=== PATIENT | female | born 1950 | race Hispanic/Latino ===

== ENCOUNTER 2017-09-25 18:15 | Emergency (ER) | payer MEDICARE, SELFPAY ==
--- NOTE | 2017-09-25 19:46 | RAD ---
PA AND LATERAL CHEST RADIOGRAPH: Date: 09-25-17 History: Cough. Comparison: 11-27-12 FINDINGS: Cardiac silhouette and pulmonary vasculature are within normal limits. The lungs are clear. Vascular calcifications are seen in the thoracic and visualized abdominal aorta. There has been no interval ch soto compared to prior study. IMPRESSION: No acute cardiopulmonary process. POS: [facility]
== END 2017-09-25 19:45 | disposition home or self-care (01) ==
LOC: ERS 18:15
DX: J20.8 Acute bronchitis due to other specified organisms (principal); E11.9 Type 2 diabetes mellitus without complications; I10 Essential (primary) hypertension; J45.909 Unspecified asthma, uncomplicated; F32.9 Major depressive disorder, single episode, unspecified
CPT/HCPCS: 71046

== ENCOUNTER 2017-11-15 11:09 | Emergency (ER) | payer MEDICARE ==
[2017-11-15 13:01] LABS: ALT (SGPT) 28 U/L (8-55); AST (SGOT) 57 U/L (5-34); Alkaline Phosphatase 145 U/L (40-150); Anion Gap 10 mmol/L (10-20); BUN (Urea Nitrogen) 12 mg/dL (9.8-20.1); Bilirubin, Total 0.6 mg/dL (0.2-1.2); Calc. Creatinine Clearance 0 mL/min (70-130); Carbon Dioxide 21 mmol/L (23-31); Chloride 114 mmol/L (98-107); Estimated GFR-MDRD 81; Globulin 4.1 g/dL (2.4-3.5); Glucose 222 mg/dL (80-115); Potassium 3.3 mmol/L (3.5-5.1); Protein, Total 7.1 g/dL (6.0-8.3); Sodium 142 mmol/L (136-145)
[2017-11-15 13:03] LABS: #Eosinphils 0.2 thou/uL (0.0-0.7); #Monocytes 0.4 thou/uL (0.11-0.59); #Neutrophils 1.8 thou/uL (1.40-6.50); %Basophils 0.3 % (0.0-1.0); %Eosinophils 6.3 % (0.0-10.0); %Lymphocytes 29.2 % (21.0-51.0); %Monocytes 10.7 % (0.0-10.0); %Neutrophils 53.5 % (42.0-75.0); Hemoglobin 12.4 g/dL (12.0-16.0); MDiff Complete? YES; Mean Corpuscular HGB CONC 33.7 g/dL (32.0-36.0); Mean Corpuscular Hemoglobin 33.5 pg (27.0-31.0); Mean Corpuscular Volume 99.3 fl (81.0-99.0); Mean Platelet Volume 6.7 fL (7.4-10.4); PLT Morphology Comment Appears Decreased; Platelet Count 67 thou/uL (130-400); Polychromasia SLIGHT = 2-3 cells (100X) (0-2/hpf); RBC Distribution Width 13.2 % (11.5-14.5); Red Blood Cell (RBC) Count 3.72 mill/uL (4.20-5.40); White Blood Cell (WBC) Count 3.3 thou/uL (4.8-10.8)
[2017-11-15] MEDS ORDERED: Potassium Chloride 20 MEQ TAB ONE (14:35)
[2017-11-15] MEDS ORDERED: Ondansetron ODT 4 MG TAB ONE (14:44)
== END 2017-11-15 16:27 | disposition home or self-care (01) ==
LOC: ERS 11:09
DX: A04.5 Campylobacter enteritis (principal); E11.9 Type 2 diabetes mellitus without complications; I10 Essential (primary) hypertension; J45.909 Unspecified asthma, uncomplicated; F32.9 Major depressive disorder, single episode, unspecified; Z79.899 Other long term (current) drug therapy
CPT/HCPCS: 36415; 36416; 80053; 82274; 85025; 87045; 87046; 87324; 87449; 87899; 96360; Q0162

== ENCOUNTER 2018-12-04 14:17 | Inpatient (IN) | payer MEDICARE, MEDICAID ==
--- NOTE | 2018-12-04 14:59 | RAD ---
XR Chest 1 View Portable History: [Cough] Comparison: Chest radiograph September 2017 Findings: Abnormal parenchymal opacities both lower lobes, greatest in the right lower lobe. No pneum othorax. No significant effusion. Heart size upper limits of normal. Dense calcifications of the aorta. Impression: Bibasilar airspace opacity concerning for infection. Follow-up after treatment haroon walker
[2018-12-04 15:00] LABS: #Eosinphils 0.1 thou/uL (0.0-0.7); #Lymphocytes 1.1 thou/uL (1.20-3.40); #Monocytes 0.8 thou/uL (0.11-0.59); #Neutrophils 6.9 thou/uL (1.40-6.50); %Basophils 0.1 % (0.0-1.0); %Lymphocytes 12.6 % (21.0-51.0); %Monocytes 8.8 % (0.0-10.0); %Neutrophils 77.5 % (42.0-75.0); Hemoglobin 12.6 g/dL (12.0-16.0); Mean Corpuscular HGB CONC 34.3 g/dL (32.0-36.0); Mean Corpuscular Hemoglobin 35.1 pg (27.0-31.0); Mean Platelet Volume 7.3 fL (7.4-10.4); Platelet Count 66 thou/uL (130-400); RBC Distribution Width 12.8 % (11.5-14.5); Red Blood Cell (RBC) Count 3.58 mill/uL (4.20-5.40); White Blood Cell (WBC) Count 8.9 thou/uL (4.8-10.8)
[2018-12-04 15:07] LABS: ALT (SGPT) 24 U/L (8-55); AST (SGOT) 44 U/L (5-34); Alkaline Phosphatase 143 U/L (40-150); Anion Gap 8 mmol/L (10-20); BUN (Urea Nitrogen) 15 mg/dL (9.8-20.1); Bilirubin, Total 1.5 mg/dL (0.2-1.2); Calc. Creatinine Clearance 0 mL/min (70-130); Calcium 8.9 mg/dL (7.8-10.44); Carbon Dioxide 22 mmol/L (23-31); Chloride 113 mmol/L (98-107); Estimated GFR-MDRD 71; Globulin 4.9 g/dL (2.4-3.5); Glucose 210 mg/dL (80-115); Protein, Total 7.9 g/dL (6.0-8.3); Sodium 139 mmol/L (136-145)
[2018-12-04 15:10] LABS: Bilirubin Negative (Negative); Blood, Urine Trace (Negative); Clarity CLOUDY (Clear); Glucose, Urine (Dipstick) 250 mg/dL (Negative); Leukocyte Large (Negative); Nitrite Positive (Negative); Protein, Urine (Dipstick) Trace mg/dL (Neg-Trace); Specific Gravity, Urine 1.022 (1.002-1.036)
[2018-12-04 15:12] LABS: Bacteria/HPF 4+ HPF (None Seen); Hyaline Casts/LPF 0-3 HYALINE CAST LPF (0-3 Hyaline); Pathc Cast-AUWi Flag 0.13 (0-2.49); RBC/HPF 0-3 HPF (0-3); Squamous Epithelial None Seen HPF (0-3)
[2018-12-04] MEDS ORDERED: Acetaminophen 500 MG TAB ONE (15:16)
[2018-12-04] MEDS ORDERED: cefTRIAXone\\ROCEPHIN 2 GM VIAL ONE (15:43)
[2018-12-04] MEDS ORDERED: Vancomycin HCl 1.25 GM in Sodium Chloride 0.9% 250 ML 250 ML IVPB SCH ×2 (16:45→20:00)
[2018-12-04] MEDS ORDERED: Permethrin 5% Cream 60 GM TUBE TOP SCH (17:45)
[2018-12-04] MEDS ORDERED: Nystatin Powder 15 GM BOT TOP PRN (18:00)
[2018-12-04] MEDS ORDERED: Ondansetron ODT 4 MG TAB PO PRN (18:01)
[2018-12-04] MEDS ORDERED: Ondansetron PF 4 MG/2 ML Vial IVP PRN (18:01)
[2018-12-04 18:31] VITALS: BMI 33.3
[2018-12-04] MEDS ORDERED: Dextrose 5% in Water 1,000 ML IV PRN (19:37)
[2018-12-04] MEDS ORDERED: Dextrose 50% Abboject 50 ML SYRINGE SLOW IVP PRN (19:37)
[2018-12-04] MEDS: Famotidine 20 MG TAB PO SCH (20:58)
--- NOTE | 2018-12-05 03:39 | HP ---
PRIMARY CARE PHYSICIAN: At [facility]. CHIEF COMPLAINT: Altered mental status with urinary frequency and dysuria. HISTORY OF PRESENT ILLNESS: Mrs. Bettencourt is a 68-year-old female with past medical history of osteoarthritis, asthma, hypertension, and diabetes mellitus type 2, who had presented to [facility] with some altered mental status, urinary frequency, urgency, and also dysuria that started yesterday. The patient's family stated that earlier this morning, the patient appeared slightly confused, she was also noted to be incontinent on herself with urine. They had also spotted a rash on her feet bilaterally lower extremities. The patient has a history of owning cats, and it was thought that the patient suffered flea bites. The patient reports the rash is quite itchy at times. She also reports lower abdominal pain in the center. She had denied any headache, blurred vision, or dizziness, any chest pain, palpitations, or shortness of breath. During her initial workup, white count was noted to be within normal limits, lactic acid normal at 1.9. Chest x-ray was performed and showed bibasilar airspace opacity concerning for infection. The patient did report having mild cough over the last 3 to 4 days. However, she had thought that this was due to her underlying asthma. When seen with family, she had appeared to be at her baseline. The patient's temperature was slightly elevated. Upon arrival to the emergency room, we started her on Tylenol and also IV fluid with normal saline. She had also been treated with vancomycin IV. Urinalysis did show positive nitrites, large leukocyte esterase, greater than 50 wbc's, and 4+ bacteria. Blood cultures and urine culture were then obtained. It was determined that the patient will be admitted for further workup and management of her symptoms. REVIEW OF SYSTEMS: All other systems reviewed and found to be negative unless mentioned in the HPI. PAST MEDICAL HISTORY: Hypertension, diabetes mellitus type 2, asthma, and osteoarthritis. PAST SURGICAL HISTORY: Hysterectomy, cholecystectomy, section x2, and surgical repair of hernia. PSYCHIATRIC HISTORY: Does include depression, in which she is not on any medication for, currently stable at this time, and she had denied any suicidal or homicidal ideation. SOCIAL HISTORY: Denies any alcohol, tobacco, or illicit drug use. KNOWN ALLERGIES: No known drug allergies. HOME MEDICATIONS: None. PHYSICAL EXAMINATION: VITAL SIGNS: BP 100/63, pulse 77, respirations 16, temperature 98.6 degrees Fahrenheit, O2 saturation 94% on room air. GENERAL: The patient is awake, alert, and oriented x3. She is lying comfortably in bed and in no acute distress at this time. The patient appears to be at her baseline. HEENT: Atraumatic, normocephalic. Pupils are round and reactive to light. Extraocular muscles intact. Moist mucous membranes noted. NECK: Soft and supple. Trachea midline. CARDIOVASCULAR: Positive S1 and S2. Regular rate and rhythm. No murmur auscultated. RESPIRATORY: Clear to auscultation bilaterally. No wheezes, rales, or rhonchi. ABDOMEN: Soft. No suprapubic tenderness noted. Otherwise, unremarkable. Bowel sounds present in all 4 quadrants. MUSCULOSKELETAL: Strength 5+ bilaterally upper and lower extremities. Moves all extremities equal. No edema noted. BACK: Normal range of motion. No CVA tenderness. SKIN: Warm, dry, and intact. Diffuse erythematous papules noted bilateral feet along with left side of abdomen, anterior abdomen, and right hip. Scratch aldana noted on left hip. PSYCHIATRIC: Good mood and affect. LABORATORY DATA: WBC 8.9, RBC 3.58, hemoglobin 12.6, platelets 66. Sodium 139, potassium 4.0, anion gap 8, BUN 15, creatinine 0.80, estimated GFR 71, glucose 210, lactic acid 1.9. Urinalysis showed large leukocyte esterase, 4+ bacteria, greater than 50 wbc's, positive nitrites, trace blood, 250 glucose. DIAGNOSTIC IMAGING: Portable chest x-ray revealed bibasilar airspace opacity concerning for infection, a followup after treatment recommended. ASSESSMENT AND PLAN: 1. Urinary tract infection, blood cultures and urine cultures will be obtained and the patient be placed on IV antibiotics at this time. We will recheck labs in the a.m. and the patient's symptoms will be monitored closely. 2. Altered mental status. The patient appears to be at her baseline, this can be likely secondary to above and/or fever, she was noted to be afebrile in the ER; however, this has resolved since starting on IV antibiotics along with Tylenol use. The patient will be monitored closely. 3. Diffuse rash/dermatitis. This can be likely secondary to flea bites. However, she will be treated with topical permethrin cream tonight to cover her for scabies, topical triamcinolone cream will be started in the a.m. for further symptomatic treatment. 4. History of hypertension, currently stable at this time. 5. History of diabetes mellitus type 2. She will be placed on an insulin sliding scale during her hospital stay, with frequent Accu-Cheks. The patient reported no further home medications; however, this will be worked in the a.m. because she will likely be sent home on an oral coverage for her blood sugars. 6. Deep venous thrombosis and gastrointestinal prophylaxis. 7. Code status, full code. 8. Surrogate decision maker is her daughter, Vipin perez. DISPOSITION: Pending further workup and clinical findings. Job ID: [id number]
[2018-12-05 06:50] LABS: #Basophils 0.1 thou/uL (0.0-0.2); #Eosinphils 0.2 thou/uL (0.0-0.7); #Monocytes 0.6 thou/uL (0.11-0.59); #Neutrophils 3.2 thou/uL (1.40-6.50); %Basophils 2.2 % (0.0-1.0); %Lymphocytes 19.9 % (21.0-51.0); %Monocytes 10.9 % (0.0-10.0); Mean Corpuscular HGB CONC 35.1 g/dL (32.0-36.0); Mean Corpuscular Hemoglobin 36.3 pg (27.0-31.0); Mean Platelet Volume 7.1 fL (7.4-10.4); Platelet Count 54 thou/uL (130-400); RBC Distribution Width 12.7 % (11.5-14.5); Red Blood Cell (RBC) Count 3.02 mill/uL (4.20-5.40)
[2018-12-05 07:01] LABS: Anion Gap 8 mmol/L (10-20); BUN (Urea Nitrogen) 11 mg/dL (9.8-20.1); Calc. Creatinine Clearance 111 mL/min (70-130); Carbon Dioxide 20 mmol/L (23-31); Chloride 114 mmol/L (98-107); Estimated GFR-MDRD Greater than 90; Glucose 107 mg/dL (80-115); Potassium 3.7 mmol/L (3.5-5.1); Sodium 138 mmol/L (136-145)
[2018-12-05] MEDS ORDERED: Betamethasone 0.1% Cream 45 GM TUBE TOP PRN (09:00)
[2018-12-05] MEDS ORDERED: Prevnar 13-Val Conj/PF 0.5 ML SYRINGE IM ONE (09:00)
[2018-12-05] MEDS: Enoxaparin Sodium 40 MG/0.4 ML SYRINGE SC SCH (09:14)
[2018-12-05] MEDS: Famotidine 20 MG TAB PO SCH ×2 (09:14→20:02)
--- NOTE | 2018-12-05 14:39 | PDOC.PN ---
- Subjective Encounter Start Date: 12/05/18 Encounter Start Time: 14:38 Subjective: feels better but still weka.c/o ankle pain in left ankle -: does not take any meds at home as she feels they are not needed - Objective Resuscitation Status - Order Detail: 12/04/18 18:01 Resuscitation Status Routine Co-Sign Provider: Resuscitation Status: FULL: Full Resuscitation MAR Reviewed: Yes Vital Signs & Weight: Vital Signs (12 hours) Temp Pulse Resp BP BP Pulse Ox 12/05/18 11:58 97.4 F L 75 18 143/74 H 95 12/05/18 08:00 93 L 12/05/18 07:49 99.1 F 71 18 106/63 93 L 12/05/18 05:00 99.7 F H 77 12 111/60 93 L Weight Weight 182 lb 1.6 oz I&O: 12/04/18 12/05/18 12/06/18 06:59 06:59 06:59 Intake Total 480 240 Balance 480 240 Result Diagrams: 12/05/18 05:51 12/05/18 05:51 Additional Labs: Accuchecks 12/05/18 12/05/18 12/04/18 11:59 05:01 20:47 POC Glucose 114 H 113 H 141 H 12/04/18 14:43 POC Glucose 202 H Microbiology 12/04/18 14:40 Urine clean catch Urine Culture - Preliminary Gram Negative Johann Laboratory Tests 11/27/12 11/15/17 12/04/18 21:00 12:29 14:31 Plt Count 89 L 67 L 66 L 12/05/18 05:51 Plt Count 54 L Microbiology 12/04/18 14:43 Venous blood - Left Hand Blood Culture - Preliminary Coagulase Neg Staphylococcus 12/04/18 14:40 Urine clean catch Urine Culture - Preliminary Gram Negative Johann 12/04/18 14:31 Venous blood - Left Arm Blood Culture - Preliminary Specimen has been received and culture in progress. No Growth to date. Phys Exam - Physical Examination Constitutional: NAD HEENT: PERRLA, moist MMs, sclera anicteric, oral pharynx no lesions Neck: no nodes, no JVD, supple, full ROM Respiratory: no wheezing, no rales, no rhonchi, clear to auscultation bilateral Cardiovascular: RRR, no significant murmur Gastrointestinal: soft, non-tender, no distention, positive bowel sounds Musculoskeletal: no edema, pulses present ankle w/o swelling,rash,erythema or warmth Neurological: non-focal, normal sensation, moves all 4 limbs Psychiatric: normal affect, A&O x 3 Skin: no rash Dx/Plan (1) UTI (urinary tract infection) Status: Acute Comment: GNR in urine. cont Rocephin.follow final Cx (2) Contact dermatitis Code(s): L25.9 - UNSPECIFIED CONTACT DERMATITIS, UNSPECIFIED CAUSE Status: Acute (3) DM2 (diabetes mellitus, type 2) Status: Chronic Qualifiers: Diabetes mellitus terminal manager insulin use: without terminal manager use Comment: eduacted about med complaince. start metfromin.Cont ISS (4) Asthma Code(s): J45.909 - UNSPECIFIED ASTHMA, UNCOMPLICATED Status: Chronic Qualifiers: Asthma severity: mild - Plan continue antibiotics, PT/OT, DVT proph w/SCDs cont ABx.follow Cx -: Hd stable -: am labs -: Ankle Xray * . Review of Systems - Review of Systems Constitutional: weakness, malaise. negative: fever, chills, sweats, other ENT: negative: Ear Pain, Ear Discharge, Nose Pain, Nose Discharge, Nose Congestion, Mouth Pain, Mouth Swelling, Throat Pain, Throat Swelling, Other Respiratory: negative: Cough, Dry, Shortness of Breath, Hemoptysis, SOB with Excertion, Pleuritic Pain, Sputum, Wheezing Cardiovascular: negative: chest pain, palpitations, orthopnea, paroxysmal nocturnal dyspnea, edema, light headedness, other Gastrointestinal: Nausea. negative: Vomiting, Abdominal Pain, Diarrhea, Constipation, Melena, Hematochezia, Other Genitourinary: negative: Dysuria, Frequency, Incontinence, Hematuria, Retention , Other Musculoskeletal: Foot Pain. negative: Neck Pain, Shoulder Pain, Arm Pain, Back Pain, Hand Pain, Leg Pain, Other Neurological: negative: Weakness, Numbness, Incoordination, Change in Speech, Confusion, Seizures, Other - Medications/Allergies Allergies/Adverse Reactions: Allergies Allergy/AdvReac Type Severity Reaction Status Date / Time No Known Drug Allergies Allergy Unverified 12/04/18 16:42 Medications: Current Medications Acetaminophen (Tylenol) 650 mg PO Q4H PRN PRN Reason: Headache/Fever/Mild Pain (1-3) Betamethasone Valerate (Valisone 0.1% Cream) 0 gm TOP BIDPRN PRN PRN Reason: Rash/Topical Irritation Dextrose/Water (Dextrose 50%) 25 gm SLOW IVP PRN PRN PRN Reason: Hypoglycemia Enoxaparin Sodium (Lovenox) 40 mg SC 0900 [facility] Last Admin: 12/05/18 09:14 Dose: 40 mg Famotidine (Pepcid) 20 mg PO BID [facility] Last Admin: 12/05/18 09:14 Dose: 20 mg Glucagon (Glucagon) 1 mg IM PRN PRN PRN Reason: Hypoglycemia Ceftriaxone Sodium 2 gm/ (Sodium Chloride) 100 mls @ 200 mls/hr IVPB Q24HR [facility] Dextrose/Water (D5w) 1,000 mls @ 0 mls/hr IV .Q0M PRN PRN Reason: Hypoglycemia Insulin Human Lispro (Humalog) 0 units SC .MILD SLIDING SCALE PRN PRN Reason: Mild Correctional Scale Insulin Human Lispro (Humalog) 0 units SC .BEDTIME SLIDING SC PRN PRN Reason: Bedtime Correctional Scale Metformin HCl (Glucophage) 500 mg PO BID-[facility] Nystatin (Mycostatin Powder) 0 gm TOP BIDPRN PRN PRN Reason: Topical Irritations Ondansetron HCl (Zofran Odt) 4 mg PO Q6H PRN PRN Reason: Nausea/Vomiting Ondansetron HCl (Zofran) 4 mg IVP Q6H PRN PRN Reason: Nausea/Vomiting
[2018-12-05] MEDS ORDERED: diphenhydrAMINE 30 GM TUBE TOP PRN (14:42)
--- NOTE | 2018-12-05 15:18 | RAD ---
LEFT ANKLE THREE VIEWS: History: Left ankle pain. FINDINGS/IMPRESSION: Soft tissue swelling is present. The ankle mortise is maintained. No fracture, dislocation, or bony d estruction is identified. There are posterior plantar calcaneal spurs. POS: [facility]
[2018-12-05] MEDS ORDERED: cefTRIAXone\\ROCEPHIN 1 GM in Sodium Chloride 0.9% 100 ML IVPB SCH (16:00)
[2018-12-05] MEDS: cefTRIAXone\\ROCEPHIN 2 GM in Sodium Chloride 0.9% 100 ML IVPB SCH (16:56)
[2018-12-05] MEDS: metFORMIN 500 MG TAB PO SCH (16:57)
[2018-12-05] MEDS: Acetaminophen 325 MG TAB PO PRN (20:02)
[2018-12-05] MEDS: HumaLOG 300 UNITS/3 ML VIAL SC PRN (20:41)
[2018-12-06] MEDS: HumaLOG 300 UNITS/3 ML VIAL SC PRN (05:26)
[2018-12-06 07:16] LABS: #Eosinphils 0.3 thou/uL (0.0-0.7); #Lymphocytes 1.2 thou/uL (1.20-3.40); #Monocytes 0.4 thou/uL (0.11-0.59); #Neutrophils 1.9 thou/uL (1.40-6.50); %Basophils 0.4 % (0.0-1.0); %Eosinophils 8.7 % (0.0-10.0); %Lymphocytes 30.8 % (21.0-51.0); %Monocytes 10.9 % (0.0-10.0); %Neutrophils 49.3 % (42.0-75.0); Hemoglobin 10.9 g/dL (12.0-16.0); Mean Corpuscular Hemoglobin 35.9 pg (27.0-31.0); Mean Platelet Volume 7.6 fL (7.4-10.4); Platelet Count 53 thou/uL (130-400); RBC Distribution Width 12.6 % (11.5-14.5); Red Blood Cell (RBC) Count 3.04 mill/uL (4.20-5.40); White Blood Cell (WBC) Count 3.8 thou/uL (4.8-10.8)
[2018-12-06 07:36] LABS: Anion Gap 6 mmol/L (10-20); BUN (Urea Nitrogen) 11 mg/dL (9.8-20.1); Calc. Creatinine Clearance 110 mL/min (70-130); Carbon Dioxide 23 mmol/L (23-31); Chloride 114 mmol/L (98-107); Estimated GFR-MDRD Greater than 90; Glucose 138 mg/dL (80-115); Potassium 3.5 mmol/L (3.5-5.1); Sodium 139 mmol/L (136-145)
[2018-12-06] MEDS: Famotidine 20 MG TAB PO SCH ×2 (09:44→21:09)
[2018-12-06] MEDS: metFORMIN 500 MG TAB PO SCH ×2 (09:44→15:12)
[2018-12-06] MEDS: Enoxaparin Sodium 40 MG/0.4 ML SYRINGE SC SCH (09:44)
[2018-12-06] MEDS: Acetaminophen 325 MG TAB PO PRN ×2 (10:03→18:12)
[2018-12-06] MEDS ORDERED: Lice Shampoo 120 ML BOT TOP SCH (14:00)
[2018-12-06] MEDS: cefTRIAXone\\ROCEPHIN 2 GM in Sodium Chloride 0.9% 100 ML IVPB SCH (15:11)
--- NOTE | 2018-12-06 15:48 | PDOC.PN ---
- Subjective Encounter Start Date: 12/06/18 Encounter Start Time: 15:45 Subjective: feels better. still very weak -: RN reports scabies lesions on legs and Head lice - Objective Resuscitation Status - Order Detail: 12/04/18 18:01 Resuscitation Status Routine Co-Sign Provider: Resuscitation Status: FULL: Full Resuscitation MAR Reviewed: Yes Vital Signs & Weight: Vital Signs (12 hours) Temp Pulse Resp BP Pulse Ox 12/06/18 11:38 98.3 F 78 18 130/69 94 L 12/06/18 08:00 99.0 F 70 16 104/62 96 12/06/18 04:00 98.1 F 76 20 133/72 96 Weight Weight 182 lb 1.6 oz I&O: 12/05/18 12/06/18 12/07/18 06:59 06:59 06:59 Intake Total 480 990 400 Balance 480 990 400 Result Diagrams: 12/06/18 06:57 12/06/18 06:57 Additional Labs: Accuchecks 12/06/18 12/06/18 12/05/18 11:39 04:55 20:21 POC Glucose 137 H 179 H 272 H 12/05/18 16:50 POC Glucose 133 H Microbiology 12/04/18 14:40 Urine clean catch Urine Culture - Final Escherichia coli 12/04/18 14:43 Venous blood - Left Hand Blood Culture - Preliminary Coagulase Neg Staphylococcus 12/04/18 14:31 Venous blood - Left Arm Blood Culture - Preliminary Specimen has been received and culture in progress. No Growth to date. Phys Exam - Physical Examination Constitutional: NAD HEENT: PERRLA, moist MMs, sclera anicteric, oral pharynx no lesions Neck: no nodes, no JVD, supple, full ROM Respiratory: no wheezing, no rales, no rhonchi, clear to auscultation bilateral Cardiovascular: RRR, no significant murmur, no rub Gastrointestinal: soft, non-tender, no distention, positive bowel sounds Musculoskeletal: no edema, pulses present rash on legs consistent w scabies Neurological: non-focal, normal sensation, moves all 4 limbs Psychiatric: normal affect, A&O x 3 Skin: no rash Dx/Plan (1) UTI (urinary tract infection) Status: Acute Comment: E.Coli in urine. cont Rocephin.follow final Cx (2) Contact dermatitis Code(s): L25.9 - UNSPECIFIED CONTACT DERMATITIS, UNSPECIFIED CAUSE Status: Acute (3) DM2 (diabetes mellitus, type 2) Status: Chronic Qualifiers: Diabetes mellitus care home insulin use: without care home use Comment: eduacted about med complaince. start metfromin.Cont ISS (4) Asthma Code(s): J45.909 - UNSPECIFIED ASTHMA, UNCOMPLICATED Status: Chronic Qualifiers: Asthma severity: mild - Plan plan discussed w/ family, DVT proph w/SCDs Lice Rx.Scabies Rx -: ABx for now based on sensitivities -: rehab eval -: mary MEDRANO in am -: HD stable * . Review of Systems - Review of Systems Constitutional: negative: fever, chills, sweats, weakness, malaise, other Respiratory: negative: Cough, Dry, Shortness of Breath, Hemoptysis, SOB with Excertion, Pleuritic Pain, Sputum, Wheezing Cardiovascular: negative: chest pain, palpitations, orthopnea, paroxysmal nocturnal dyspnea, edema, light headedness, other Gastrointestinal: negative: Nausea, Vomiting, Abdominal Pain, Diarrhea, Constipation, Melena, Hematochezia, Other Genitourinary: negative: Dysuria, Frequency, Incontinence, Hematuria, Retention , Other Musculoskeletal: negative: Neck Pain, Shoulder Pain, Arm Pain, Back Pain, Hand Pain, Leg Pain, Foot Pain, Other Skin: Rash Neurological: negative: Weakness, Numbness, Incoordination, Change in Speech, Confusion, Seizures, Other - Medications/Allergies Allergies/Adverse Reactions: Allergies Allergy/AdvReac Type Severity Reaction Status Date / Time No Known Drug Allergies Allergy Verified 12/05/18 20:01 Medications: Current Medications Acetaminophen (Tylenol) 650 mg PO Q4H PRN PRN Reason: Headache/Fever/Mild Pain (1-3) Last Admin: 12/06/18 10:03 Dose: 650 mg Betamethasone Valerate (Valisone 0.1% Cream) 0 gm TOP BIDPRN PRN PRN Reason: Rash/Topical Irritation Dextrose/Water (Dextrose 50%) 25 gm SLOW IVP PRN PRN PRN Reason: Hypoglycemia Enoxaparin Sodium (Lovenox) 40 mg SC 0900 [facility] Last Admin: 12/06/18 09:44 Dose: 40 mg Famotidine (Pepcid) 20 mg PO BID [facility] Last Admin: 12/06/18 09:44 Dose: 20 mg Glucagon (Glucagon) 1 mg IM PRN PRN PRN Reason: Hypoglycemia Ceftriaxone Sodium 2 gm/ (Sodium Chloride) 100 mls @ 200 mls/hr IVPB Q24HR [facility] Last Admin: 12/06/18 15:11 Dose: 100 mls Dextrose/Water (D5w) 1,000 mls @ 0 mls/hr IV .Q0M PRN PRN Reason: Hypoglycemia Insulin Human Lispro (Humalog) 0 units SC .MILD SLIDING SCALE PRN PRN Reason: Mild Correctional Scale Last Admin: 12/06/18 05:26 Dose: 2 unit Insulin Human Lispro (Humalog) 0 units SC .BEDTIME SLIDING SC PRN PRN Reason: Bedtime Correctional Scale Last Admin: 12/05/18 20:41 Dose: 3 unit Metformin HCl (Glucophage) 500 mg PO BID-[facility] Last Admin: 12/06/18 15:12 Dose: 500 mg Nystatin (Mycostatin Powder) 0 gm TOP BIDPRN PRN PRN Reason: Topical Irritations Ondansetron HCl (Zofran Odt) 4 mg PO Q6H PRN PRN Reason: Nausea/Vomiting Ondansetron HCl (Zofran) 4 mg IVP Q6H PRN PRN Reason: Nausea/Vomiting Pyrethrins/Piperonyl Butoxide (Lice Treatment Shampoo 120ml) 0 ml TOP 1400 [facility] Stop: 12/06/18 20:00 Last Admin: 12/06/18 15:11 Dose: 1 appful Zinc Acetate/Diphenhydramine (Benadryl 2% Cream) 1 gm TOP QID PRN PRN Reason: Allergies Last Admin: 12/05/18 16:56 Dose: 1 applic
--- NOTE | 2018-12-06 16:16 | ULT ---
EXAM: US Abdominal CLINICAL HISTORY: Possible splenomegaly. Cirrhosis.. COMPARISON: 07/20/2011 FINDINGS: Pancreas: Suboptimal evaluation due to bowel gas IVC: Visualized IVC is unremarkable Aorta: Visualized aorta is unremarkable Liver:Increased echogenicity which may be due to hepatic steatosis, hepatocellular disease or technic al limitations. Limited evaluation for hepatic masses and intrahepatic biliary dilatation. Right hepatic lobe measures 13.2 cm Main portal vein is patent. Appropriate directional flow Gallbladder: Reported to be surgically absent. Correlate with patient's surgical history. Presley's sign:Not applicable CBD: 0.3 cm Right kidney: Mild dilatation of the renal pelvis Right kidney measuring 5.7 x 6.6 x 11.0 cm in lengt h. Left kidney: No hydronephrosis Left kidney measuring 4.7 x 5.2 x 10.5 cm in length Spleen: Normal echotexture. 5.2 x 12.5 cm. IMPRESSION: 1. Limited evaluation of the hepatic parenchyma. Increased echogenicity may be due to hepatocellular disease, fatty infiltration or technical limitations. Concern for hepatic masses, consider further evaluation. 2. 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 3. Mild right-sided hydronephrosis. 4. No evidence of splenomegaly. 5. Gallbladder is reportedly surgically absent. Correlate with surgical history Transcribed Date/Time: 12/06/2018 4:23 PM
[2018-12-07] MEDS: metFORMIN 500 MG TAB PO SCH ×2 (08:52→16:13)
[2018-12-07] MEDS: Famotidine 20 MG TAB PO SCH ×2 (08:52→19:42)
[2018-12-07] MEDS: Enoxaparin Sodium 40 MG/0.4 ML SYRINGE SC SCH (08:52)
[2018-12-07] MEDS: Acetaminophen 325 MG TAB PO PRN (08:56)
[2018-12-07] MEDS ORDERED: Clopidogrel Bisulfate 75 MG TAB ONE (09:12)
--- NOTE | 2018-12-07 16:02 | PRG ---
DATE OF SERVICE: 12/07/2018 SUBJECTIVE: The patient is seen and examined at the bedside. She has some complaints of pain in her left lower extremity and swelling. OBJECTIVE: VITAL SIGNS: Blood pressure is 137/76, pulse is 68, temperature is 98.0, respirations 18, and O2 saturation 97% on room air. GENERAL: She is not in any distress during my visit. Her daughter is present in the room. HEENT: Her eyes are PERRLA. Sclerae are nonicteric. Oral mucosa is moist. NECK: Supple. LUNGS: Clear. HEART: S1 and S2 normal. ABDOMEN: Soft, nontender, and obese. EXTREMITIES: Left lower extremity has 2+ peripheral edema and right lower extremity has less than 1+. NEUROLOGIC: She follows my commands. She moves her all 4 extremities. There are no motor deficits. LABORATORY DATA: Glycemia is ranging from 80 to 194. IMPRESSION: 1. Urinary tract infection with Escherichia coli, on Rocephin. 2. Left lower extremity swelling, rule out deep venous thrombosis. 3. Diabetes mellitus. 4. Asthma. PLAN: Doppler of the lower extremities to rule out DVT. Continue Rocephin for urinary tract infection. Continue Accu-Cheks and sliding scale. The patient is screened by the rehab and we are waiting for the final report. Job ID: [id number]
[2018-12-07] MEDS: cefTRIAXone\\ROCEPHIN 2 GM in Sodium Chloride 0.9% 100 ML IVPB SCH (16:10)
[2018-12-07] MEDS: HumaLOG 300 UNITS/3 ML VIAL SC PRN ×2 (16:14→19:59)
--- NOTE | 2018-12-07 16:20 | ULT ---
EXAM: Left lower extremity venous duplex ultrasound with color and spectral Doppler imaging: HISTORY: Lower extremity swelling and edema COMPARISON: None FINDINGS: Exam performed from the groin to the ankle including the visualized greater saphenous, common femoral , superficial femoral, profunda femoral, popliteal, trifurcation, and posterior tibial veins. There is phasic flow with normal compressibility and normal augmentation at all examined levels. No evidence for intraluminal thrombus. IMPRESSION: No evidence for deep venous thrombosis.
[2018-12-08] MEDS: Famotidine 20 MG TAB PO SCH (08:28)
[2018-12-08] MEDS: metFORMIN 500 MG TAB PO SCH (08:28)
[2018-12-08] MEDS: Enoxaparin Sodium 40 MG/0.4 ML SYRINGE SC SCH (08:30)
[2018-12-08] MEDS: HumaLOG 300 UNITS/3 ML VIAL SC PRN (12:39)
[2018-12-08 12:46] VITALS: BP 121/73; TEMP 98.3
--- NOTE | 2018-12-08 13:58 | PDOC.PN ---
- Subjective Encounter Start Date: 12/08/18 Encounter Start Time: 07:00 Subjective: feels good, family at bedside - Objective Resuscitation Status - Order Detail: 12/04/18 18:01 Resuscitation Status Routine Co-Sign Provider: Resuscitation Status: FULL: Full Resuscitation MAR Reviewed: Yes Vital Signs & Weight: Vital Signs (12 hours) Temp Pulse Resp BP Pulse Ox 12/08/18 12:00 98.3 F 81 18 121/73 97 12/08/18 08:09 98.5 F 77 18 119/70 92 L 12/08/18 08:00 92 L Weight Weight 182 lb 1.6 oz I&O: 12/07/18 12/08/18 12/09/18 06:59 06:59 06:59 Intake Total 800 1570 Balance 800 1570 Result Diagrams: 12/06/18 06:57 12/06/18 06:57 Additional Labs: Accuchecks 12/08/18 12/08/18 12/07/18 11:44 05:50 19:53 POC Glucose 183 H 145 H 237 H 12/07/18 16:11 POC Glucose 223 H Phys Exam - Physical Examination HEENT: PERRLA, moist MMs Neck: no JVD, supple Respiratory: no wheezing, no rales Cardiovascular: RRR, no significant murmur Gastrointestinal: soft, non-tender, positive bowel sounds Musculoskeletal: pulses present has b/l excoriations/scabies of LE Neurological: non-focal, moves all 4 limbs Psychiatric: normal affect, A&O x 3 Dx/Plan (1) UTI (urinary tract infection) Status: Acute Qualifiers: Urinary tract infection type: acute cystitis Hematuria presence: without hematuria Qualified Code(s): N30.00 - Acute cystitis without hematuria Comment: E.Coli pansensitive (2) Contact dermatitis Code(s): L25.9 - UNSPECIFIED CONTACT DERMATITIS, UNSPECIFIED CAUSE Status: Acute Qualifiers: Contact dermatitis type: unspecified (3) Scabies Status: Acute Comment: lower extre b/l (4) Asthma Code(s): J45.909 - UNSPECIFIED ASTHMA, UNCOMPLICATED Status: Chronic Qualifiers: Asthma severity: mild Asthma persistence: intermittent (5) DM2 (diabetes mellitus, type 2) Status: Chronic Qualifiers: Diabetes mellitus intermediate insulin use: without computer terminal operator use Diabetes mellitus complication status: with unspecified complications Qualified Code(s) : E11.8 - Type 2 diabetes mellitus with unspecified complications Comment: eduacted about med complaince. start metfromin.Cont ISS - Plan hemostable -: may dc to rehab today -: small dose of lisinopril for renal protection -: has amb around 100ft yest -: gave updates to family and pt at bedside * .
--- NOTE | 2018-12-09 11:04 | DIS ---
DATE OF ADMISSION: 12/04/2018 DATE OF DISCHARGE: 12/08/2018 DISCHARGE DISPOSITION: To inpatient rehab. PRIMARY DISCHARGE DIAGNOSES: 1. Urinary tract infection. 2. Lower extremity scabies, resolving. 3. Contact dermatitis. 4. Mild intermittent asthma. 5. Diabetes mellitus, type 2. PROCEDURES DONE DURING HOSPITALIZATION: The patient has had abdominal ultrasound done, which showed increased echogenicity of liver, likely fatty infiltration. Gallbladder was surgically absent. Mild right-sided hydronephrosis. No evidence of splenomegaly. Left ankle, three view x-ray done showed soft tissue swelling. No fracture or dislocation or bony destruction was seen. Posterior plantar calcaneal spurs were seen. Left lower extremity ultrasound venous Doppler done showed no evidence of DVT. Urine culture grew E coli resistant to quinolones, but sensitive to all other antibiotics. Discharge white count of 3.8, H and H of 10 and 31, platelet count is 53 with 49% neutrophils. BUN and creatinine on the were 11 and 0.6, albumin 3.0 on the day of admission. DISCHARGE MEDICATIONS: 1. Vitamin B12 of 1000 mcg p.o. daily. 2. Pepcid 20 mg twice daily. 3. Ferrous sulfate 325 mg daily. 4. Folic acid 1 mg daily. 5. Lisinopril 2.5 mg daily. 6. Metformin 500 mg p.o. twice daily. 7. Multivitamin one tablet once daily. 8. Bactrim Double Strength one tablet twice daily for UTI for another 4 days. ALLERGIES: NO KNOWN DRUG ALLERGIES. DISCHARGE PLAN: The patient is being discharged to inpatient rehab for further recuperation for deconditioning. BRIEF COURSE DURING HOSPITALIZATION: The patient initially got admitted on the after family brought her for confusion, urinary frequency, urgency, and dysuria. She was also found to have had a rash on both lower extremities. She was essentially admitted to medical floor for acute encephalopathy secondary to UTI and likely scabies in the lower extremities. She was treated with permethrin cream for scabies. She responded well to IV antibiotics and has been switched over to Bactrim at the time of discharge. The patient has chronic thrombocytopenia and needs to have further workup for the same with her primary care physician. The patient has had this from 2012 on [facility]. It is unclear if the patient has hepatitis. She has remained hemodynamically stable, although deconditioned. She has ambulated nearly 100 feet on the day of discharge. She is being discharged to inpatient rehab for further recuperation prior to going home. The patient has remained hemodynamically stable. Please see a [id number] documentation for the day of discharge on [employer]. A total of 35 minutes was spent on discharge plan. Job ID: [id number] MTDD
== END 2018-12-08 15:26 | DRG 690 ==
LOC: ERS 14:17 → T4-B 15:44
PROVIDERS: ADMIT Internal Medicine; ATTEND Internal Medicine
DX: N39.0 Urinary tract infection, site not specified (principal); G93.49 Other encephalopathy; M19.90 Unspecified osteoarthritis, unspecified site; I10 Essential (primary) hypertension; E11.9 Type 2 diabetes mellitus without complications; F32.9 Major depressive disorder, single episode, unspecified; L25.9 Unspecified contact dermatitis, unspecified cause; B96.20 Unspecified Escherichia coli [E. coli] as the cause of diseases classified elsewhere; B86 Scabies; Z16.29 Resistance to other single specified antibiotic; J45.20 Mild intermittent asthma, uncomplicated; Z90.710 Acquired absence of both cervix and uterus; Z90.49 Acquired absence of other specified parts of digestive tract
CPT/HCPCS: 36415; 36416; 51701; 71045; 76700; 80048; 80053; 81003; 81015; 83605; 85025; 87040; 87077; 87086; 87149; 87186; 96361; 96365; A4353; J0696; J1650; J3370; J3490; J7050

== ENCOUNTER 2019-03-02 22:03 | Emergency (ER) | payer MEDICARE, MEDICAID ==
[2019-03-02 22:39] LABS: #Eosinphils 0.3 thou/uL (0.0-0.7); #Lymphocytes 1.2 thou/uL (1.20-3.40); #Monocytes 0.4 thou/uL (0.11-0.59); #Neutrophils 2.5 thou/uL (1.40-6.50); %Basophils 0.4 % (0.0-1.0); %Eosinophils 7.5 % (0.0-10.0); %Lymphocytes 26.7 % (21.0-51.0); %Monocytes 8.9 % (0.0-10.0); %Neutrophils 56.5 % (42.0-75.0); Hemoglobin 13.1 g/dL (12.0-16.0); Mean Corpuscular Hemoglobin 35.9 pg (27.0-31.0); Mean Platelet Volume 7.3 fL (7.4-10.4); Platelet Count 76 thou/uL (130-400); RBC Distribution Width 12.9 % (11.5-14.5); Red Blood Cell (RBC) Count 3.65 mill/uL (4.20-5.40); White Blood Cell (WBC) Count 4.5 thou/uL (4.8-10.8)
[2019-03-02] MEDS ORDERED: Ondansetron PF 4 MG/2 ML Vial ONE (22:47)
[2019-03-02 23:01] LABS: ALT (SGPT) 32 U/L (8-55); AST (SGOT) 55 U/L (5-34); Albumin 3.3 g/dL (3.4-4.8); Alkaline Phosphatase 133 U/L (40-150); Anion Gap 14 mmol/L (10-20); BUN (Urea Nitrogen) 11 mg/dL (9.8-20.1); Bilirubin, Total 0.8 mg/dL (0.2-1.2); Calc. Creatinine Clearance 0 mL/min (70-130); Calcium 9.5 mg/dL (7.8-10.44); Carbon Dioxide 21 mmol/L (23-31); Chloride 111 mmol/L (98-107); Estimated GFR-MDRD 81; Globulin 4.8 g/dL (2.4-3.5); Glucose 167 mg/dL (80-115); Potassium 4.6 mmol/L (3.5-5.1); Protein, Total 8.1 g/dL (6.0-8.3); Sodium 141 mmol/L (136-145)
[2019-03-03 01:23] LABS: Bilirubin Negative (Negative); Blood, Urine Negative (Negative); Clarity Clear (Clear); Glucose, Urine (Dipstick) Normal (Negative); Leukocyte Negative Leu/uL (Negative); Nitrite Negative (Negative); Protein, Urine (Dipstick) Negative (Neg-Trace)
== END 2019-03-03 01:45 | disposition home or self-care (01) ==
LOC: ERS 22:03
DX: R11.2 Nausea with vomiting, unspecified (principal); E11.9 Type 2 diabetes mellitus without complications; I10 Essential (primary) hypertension; J45.909 Unspecified asthma, uncomplicated; M19.90 Unspecified osteoarthritis, unspecified site; F32.9 Major depressive disorder, single episode, unspecified
CPT/HCPCS: 80053; 81003; 85025; 96361; 96374; J2405

== ENCOUNTER 2019-06-29 19:30 | Inpatient (IN) | payer MEDICAID, MEDICARE ==
[2019-06-29 20:39] LABS: Hemoglobin 11.5 g/dL (12.0-16.0); Mean Corpuscular HGB CONC 35.1 g/dL (32.0-36.0); Mean Corpuscular Hemoglobin 35.9 pg (27.0-31.0); RBC Distribution Width 12.7 % (11.5-14.5); Red Blood Cell (RBC) Count 3.19 mill/uL (4.20-5.40)
[2019-06-29 20:40] LABS: ALT (SGPT) 21 U/L (8-55); AST (SGOT) 40 U/L (5-34); Alkaline Phosphatase 304 U/L (40-110); Anion Gap 11 mmol/L (10-20); BUN (Urea Nitrogen) 15 mg/dL (9.8-20.1); Bilirubin, Total 0.7 mg/dL (0.2-1.2); Calc. Creatinine Clearance 0 mL/min (70-130); Calcium 8.8 mg/dL (7.8-10.44); Carbon Dioxide 20 mmol/L (23-31); Chloride 114 mmol/L (98-107); Estimated GFR-MDRD 48; Globulin 4.2 g/dL (2.4-3.5); Glucose 289 mg/dL (80-115); Potassium 3.9 mmol/L (3.5-5.1); Protein, Total 7.2 g/dL (6.0-8.3); Sodium 141 mmol/L (136-145)
[2019-06-29 21:05] LABS: #Eosinphils 0.3 thou/uL (0.0-0.7); #Monocytes 0.4 thou/uL (0.11-0.59); #Neutrophils 1.8 thou/uL (1.40-6.50); %Basophils 1.1 % (0.0-1.0); %Eosinophils 7.9 % (0.0-10.0); %Lymphocytes 28.2 % (21.0-51.0); %Monocytes 10.7 % (0.0-10.0); %Neutrophils 52.1 % (42.0-75.0); MDiff Complete? YES; Macrocytosis SLIGHT = 6-15 cells (100X) (0-5/hpf); Mean Platelet Volume 7.2 fL (7.4-10.4); Platelet Count 65 thou/uL (130-400); Platelet Morphology Comment Appears Decreased; White Blood Cell (WBC) Count 3.5 thou/uL (4.8-10.8)
[2019-06-29 21:08] LABS: Bilirubin Negative (Negative); Blood, Urine Negative (Negative); Clarity Turbid (Clear); Glucose, Urine (Dipstick) Greater than 1000 mg/dL (Negative); Leukocyte 25 Leu/uL (Negative); Nitrite Negative (Negative); Protein, Urine (Dipstick) 20 mg/dL (Neg-Trace); RBC/HPF None Seen HPF (0-3); Urobilinogen 6 mg/dL (Less than 2)
--- NOTE | 2019-06-29 21:31 | CT ---
CT head noncontrast HISTORY: Altered mental status. FINDINGS: There is no evidence of acute intracranial hemorrhage or infarct. Mild physiologic calcific ation within the basal ganglia. Mild chronic ischemic small vessel disease throughout the periventricular white matter of each cerebral hemisphere. There is no mass effect or shift of midline structures. IMPRESSION: No acute intracranial abnormalities are demonstrated.
--- NOTE | 2019-06-29 21:45 | RAD ---
Chest one view HISTORY: Weakness. Dyspnea. COMPARISON: 12/04/2018. FINDINGS: Cardiac silhouette is magnified by projection. Pulmonary vasculature upper limits of normal . Patient is rotated rightward. Calcification over the aorta. No lobar consolidation or evidence of pneumothorax. IMPRESSION: Atherosclerosis. No active cardiopulmonary abnormalities are otherwise demonstrated.
[2019-06-29 21:46] LABS: Bacteria/HPF 3+ HPF (None Seen); Squamous Epithelial 0-3 HPF (0-3)
[2019-06-29] MEDS ORDERED: cefTRIAXone\\ROCEPHIN 2 GM VIAL ONE (22:30)
[2019-06-30] MEDS ORDERED: Ondansetron ODT 4 MG TAB SL PRN (02:48)
[2019-06-30] MEDS ORDERED: Ondansetron PF 4 MG/2 ML Vial IVP PRN ×2 (02:48→12:13)
[2019-06-30] MEDS ORDERED: Acetaminophen 325 MG TAB PO PRN ×2 (02:48→12:13)
[2019-06-30 02:55] VITALS: BMI 31.8
[2019-06-30] MEDS ORDERED: FLU VACC TS2019-20(65YR UP)/PF 180 MCG/0.5 ML SYRINGE IM ONE (09:00)
[2019-06-30] MEDS ORDERED: Guaifenesin DM 100-10/5 ML UDCUP PO PRN (12:13)
[2019-06-30] MEDS ORDERED: HumaLOG 300 UNITS/3 ML VIAL SC PRN ×2 (12:13)
[2019-06-30] MEDS ORDERED: Bisacodyl 10 MG SUPP PR PRN (12:13)
[2019-06-30] MEDS ORDERED: Senokot S 8.6-50 MG TAB PO PRN (12:13)
[2019-06-30] MEDS ORDERED: Dextrose 50% Abboject 50 ML SYRINGE SLOW IVP PRN (12:13)
[2019-06-30] MEDS ORDERED: Dextrose 5% in Water 1,000 ML IV PRN (12:13)
[2019-06-30] MEDS ORDERED: HYDROcodone/Acetaminophen 5/325 mg Tablet PO PRN (12:13)
[2019-06-30] MEDS: Sodium Chloride 0.9% 1,000 ML IV SCH (12:40)
--- NOTE | 2019-06-30 14:58 | HP ---
REASON FOR ADMISSION: Acute metabolic encephalopathy, UTI, diarrheal episodes at home, and deconditioning. HISTORY OF PRESENTING ILLNESS: Please note, majority of this history is obtained by talking to the patient's daughter who is here at bedside as the patient is not fully oriented. Per family, the patient complained of headache at home. She also started to hallucinate, was not thinking straight. She was talking about being in the restroom while being in the bedroom. She also did not know where she was and what year it was. She was also very slow to talk. All of this prompted them to come to the emergency room. The family also mentions that she has had similar episode in November of this year. PAST MEDICAL AND SURGICAL HISTORY: History of asthma, hypertension, osteoarthritis, hysterectomy, cholecystectomy, x2, and hernia repair. CURRENT MEDICATIONS: 1. Pepcid 20 mg twice daily. 2. Metformin 500 mg twice daily. 3. Lisinopril 2.5 mg daily. 4. Folic acid 0.8 mg daily. 5. Iron 18 mg daily. 6. Vitamin B12 of 1000 mcg p.o. daily. ALLERGIES: NO KNOWN DRUG ALLERGIES. PERSONAL HISTORY: Does not abuse alcohol or drugs. No history of smoking. She normally ambulates by herself. She lives with her daughter. FAMILY HISTORY: Mother of dementia and advanced age at the age of 89 years. Father in his 60s. He has history of hypertension. The patient had an older sister who has history of breast cancer. CODE STATUS: Full. Power of claim attorney is her daughter. REVIEW OF SYSTEMS: Cannot be obtained as the patient is not oriented. PHYSICAL EXAMINATION: GENERAL: The patient is a 68-year-old female, who is currently not oriented, but not in any acute distress. VITAL SIGNS: Blood pressure 190/80, pulse 100 per minute, respiratory rate 20 per minute, temperature 99.5 degrees Fahrenheit, saturating 99% on room air. NECK: Supple. No elevated JVD. HEENT: Eyes; extraocular muscles intact. Pupils reacting to light. Oral cavity; mucous membranes are dry. No exudates or congestion. CARDIOVASCULAR: S1 and S2 heard. Regular rhythm. Respiratory system, air entry 1+ bilateral. No rales or rhonchi. ABDOMEN: Soft. Bowel sounds heard. No tenderness, rigidity, or guarding. No CV angle tenderness. EXTREMITIES: No peripheral edema or calf tenderness. VASCULAR: Peripheral pulses 1+ bilateral. No ischemic ulcerations or gangrene. CENTRAL NERVOUS SYSTEM: No gross focal deficits noted. The patient moves all 4 extremities. No focal sign seen. She is not oriented. PSYCHIATRIC: Cannot be accurately assessed as the patient is not oriented at present. LABORATORY DATA: EKG done, shows sinus tach at 101 beats per minute. White count of 3.5, H and H 11 and 32, platelet count 65, MCV is 102, and with 52% neutrophils. Serum bicarb 20, BUN 15, creatinine 1.1, serum glucose 289, AST 40, ALT 21, alkaline phosphatase 304. Troponin I x1 negative. Albumin is 3.0. UA shows signs of UTI. Blood cultures x2, no growth. Stool for C diff negative. Campylobacter and Shiga toxin on stool are negative. Chest x-ray done showed no acute cardiopulmonary abnormality. CT brain done showed no acute intracranial abnormality. CLINICAL IMPRESSION AND PLAN: The patient will be admitted to medical floor for acute metabolic encephalopathy, urinary tract infection. There are no clinical signs of acute CVA at present. She will be on ciprofloxacin 400 mg IV q.12 hourly until urine cultures are back for UTI. We will continue home dose of Pepcid, ferrous sulfate, folic acid, lisinopril, metformin, and gently hydrate with normal saline at 100 mL/hour. Blood cultures have been obtained in the ER. We will follow up once the results are back. PT/OT evaluations and speech evaluations will be requested. The patient likely has underlying dementia with recurrent episodes of acute encephalopathy. We will closely monitor her on medical floor. Job ID: [id number] [facility]
[2019-06-30] MEDS: metFORMIN 500 MG TAB PO SCH (18:17)
[2019-06-30] MEDS: Famotidine 20 MG TAB PO SCH (20:38)
[2019-07-01] MEDS: Sodium Chloride 0.9% 1,000 ML IV SCH ×2 (01:41→11:59)
[2019-07-01 05:54] LABS: #Eosinphils 0.6 thou/uL (0.0-0.7); #Lymphocytes 1.4 thou/uL (1.20-3.40); #Monocytes 0.5 thou/uL (0.11-0.59); %Basophils 0.8 % (0.0-1.0); %Monocytes 10.8 % (0.0-10.0); %Neutrophils 44.3 % (42.0-75.0); Mean Corpuscular HGB CONC 34.3 g/dL (32.0-36.0); Mean Corpuscular Hemoglobin 35.8 pg (27.0-31.0); Mean Platelet Volume 7.1 fL (7.4-10.4); Platelet Count 72 thou/uL (130-400); RBC Distribution Width 12.7 % (11.5-14.5); Red Blood Cell (RBC) Count 3.07 mill/uL (4.20-5.40); White Blood Cell (WBC) Count 4.6 thou/uL (4.8-10.8)
[2019-07-01 06:12] LABS: Anion Gap 8 mmol/L (10-20); BUN (Urea Nitrogen) 9 mg/dL (9.8-20.1); Calc. Creatinine Clearance 107 mL/min (70-130); Calcium 7.8 mg/dL (7.8-10.44); Carbon Dioxide 20 mmol/L (23-31); Chloride 115 mmol/L (98-107); Estimated GFR-MDRD Greater than 90; Glucose 115 mg/dL (80-115); Potassium 3.7 mmol/L (3.5-5.1); Sodium 139 mmol/L (136-145)
[2019-07-01] MEDS: Ferrous Sulfate 325 MG TAB PO SCH (08:09)
[2019-07-01] MEDS: Famotidine 20 MG TAB PO SCH ×2 (08:09→19:50)
[2019-07-01] MEDS: Folic Acid 1 MG TAB PO SCH (08:09)
[2019-07-01] MEDS: Cyanocobalamin (Vitamin B-12) 1,000 MCG TAB PO SCH (08:09)
[2019-07-01] MEDS: metFORMIN 500 MG TAB PO SCH ×2 (08:10→17:04)
[2019-07-01] MEDS: Lisinopril 2.5 MG TAB PO SCH (08:10)
[2019-07-01] MEDS: Enoxaparin Sodium 40 MG/0.4 ML SYRINGE SC SCH (08:11)
[2019-07-01] MEDS ORDERED: FERROUS SULFATE PO SCH (09:00)
[2019-07-01] MEDS ORDERED: Permethrin 5% Cream 60 GM TUBE TOP SCH (10:30)
--- NOTE | 2019-07-01 11:26 | PDOC.HOSPP ---
- Subjective Encounter Date: 07/01/19 Encounter Time: 08:25 Subjective: is awake and oriented well this am is able to name all 10 children, knows where she is daughter at bedside - Objective Vital Signs & Weight: Vital Signs (12 hours) Temp Pulse Resp BP Pulse Ox 07/01/19 08:10 95 07/01/19 07:47 98.2 F 73 16 115/69 95 07/01/19 03:43 99 F 77 18 117/47 L 96 07/01/19 00:00 98.6 F 77 18 122/50 L 96 Weight Weight 168 lb 12.8 oz I&O: 06/30/19 07/01/19 07/02/19 06:59 06:59 06:59 Intake Total 200 2270 Output Total 250 1600 Balance -50 670 Result Diagrams: 07/01/19 05:26 07/01/19 05:26 Additional Labs: Accuchecks 07/01/19 06/30/19 06/30/19 03:50 19:47 16:19 POC Glucose 127 H 138 H 144 H Hospitalist ROS - Medication Medications: Active Medications Generic Name Dose Route Start Last Admin Trade Name Marcos PRN Reason Stop Dose Admin Cyanocobalamin 5,000 mcg 07/01/19 09:00 07/01/19 08:09 Vitamin B-12 PO 5,000 mcg DAILY TUTU Administration Enoxaparin Sodium 40 mg 07/01/19 09:00 07/01/19 08:11 Lovenox SC Not Given 0900 TUTU Famotidine 20 mg 06/30/19 21:00 07/01/19 08:09 Pepcid PO 20 mg BID TUTU Administration Ferrous Sulfate 325 mg 07/01/19 09:00 07/01/19 08:09 Feosol PO 325 mg DAILY TUTU Administration Folic Acid 1 mg 07/01/19 09:00 07/01/19 08:09 Folvite PO 1 mg DAILY TUTU Administration Ciprofloxacin/Dextrose 400 mg/ 200 mls @ 200 mls/hr 06/30/19 21:00 07/01/19 08:10 Device IVPB 200 mls Q12HR TUTU Administration Sodium Chloride 1,000 mls @ 100 mls/hr 06/30/19 12:15 07/01/19 01:41 Normal Saline 0.9% IV 07/01/19 18:14 1,000 mls .Q10H TUTU Administration Lisinopril 2.5 mg 07/01/19 09:00 07/01/19 08:10 Zestril PO 2.5 mg DAILY TUTU Administration Metformin HCl 500 mg 06/30/19 17:00 07/01/19 08:10 Glucophage PO 500 mg BID-WM TUTU Administration Sodium Chloride 10 ml 06/30/19 21:00 07/01/19 08:10 Flush - Normal Saline IVF 10 ml Q12HR TUTU Administration - Exam General Appearance: NAD, awake alert Eye: PERRL, anicteric sclera ENT: no oropharyngeal lesions, moist mucosa Neck: supple, no JVD Heart: RRR, no murmur Respiratory: no wheezes, no rales, no ronchi Gastrointestinal: soft, non-tender, non-distended, normal bowel sounds Extremities: no cyanosis, no edema Neurological: cranial nerve grossly intact, no focal deficits Psychiatric: normal affect, A&O x 3 Hosp A/P (1) Acute metabolic encephalopathy Code(s): G93.41 - METABOLIC ENCEPHALOPATHY Status: Resolved (2) UTI (urinary tract infection) Status: Acute Qualifiers: Urinary tract infection type: acute cystitis Hematuria presence: without hematuria Qualified Code(s): N30.00 - Acute cystitis without hematuria (3) Asthma Code(s): J45.909 - UNSPECIFIED ASTHMA, UNCOMPLICATED Status: Chronic Qualifiers: Asthma severity: mild Asthma persistence: intermittent Asthma complication type: uncomplicated Qualified Code(s): J45.20 - Mild intermittent asthma, uncomplicated (4) DM2 (diabetes mellitus, type 2) Status: Chronic Qualifiers: Diabetes mellitus fci insulin use: without fci use (5) HTN (hypertension) Code(s): I10 - ESSENTIAL (PRIMARY) HYPERTENSION Status: Acute Qualifiers: Hypertension type: essential hypertension Qualified Code(s): I10 - Essential (primary) hypertension - Plan encephalopathy has resolved is on cipro, await urine cs, blood cs x2 no growth finish total of 3 liter iv hydration to amb in hallway as tolerated staff found head lice on her, permethrin application hemostable likely dc plan in am
[2019-07-02] MEDS: Enoxaparin Sodium 40 MG/0.4 ML SYRINGE SC SCH (08:38)
[2019-07-02] MEDS: Folic Acid 1 MG TAB PO SCH (08:42)
[2019-07-02] MEDS: Lisinopril 2.5 MG TAB PO SCH (08:42)
[2019-07-02] MEDS: Ferrous Sulfate 325 MG TAB PO SCH (08:42)
[2019-07-02] MEDS: metFORMIN 500 MG TAB PO SCH (08:42)
[2019-07-02] MEDS: Cyanocobalamin (Vitamin B-12) 1,000 MCG TAB PO SCH (08:42)
[2019-07-02] MEDS: Famotidine 20 MG TAB PO SCH (08:43)
[2019-07-02 13:24] VITALS: BP 127/74; TEMP 97.9
[2019-07-02] MEDS ORDERED: Ciprofloxacin 500 MG TAB PO SCH ×2 (13:30→20:00)
--- NOTE | 2019-07-03 07:22 | DIS ---
DATE OF ADMISSION: 06/30/2019 DATE OF DISCHARGE: 07/02/2019 DISCHARGE DISPOSITION: To home. PRIMARY DISCHARGE DIAGNOSIS: Acute metabolic encephalopathy due to urinary tract infection, resolved. SECONDARY DISCHARGE DIAGNOSES: Diabetes mellitus type 2, history of asthma which is stable, and hypertension. PROCEDURES DONE DURING HOSPITALIZATION: Chest x-ray done showed no acute cardiopulmonary abnormality. CT brain showed no acute intracranial abnormality. Urine culture grew Staphylococcus Simulans sensitive to quinolones. Stool for Clostridium difficile was negative. Stool for Campylobacter and Shiga toxins were negative. Blood cultures x2, no growth. White count of 4.6 on the 8th, H and H 11 and 32, platelet count is 72. Her platelet count has been chronically low for unclear reasons at present. BUN 9, creatinine 0.6, AST 40, ALT 21, alkaline phosphatase 304, albumin 3.0. DISCHARGE MEDICATIONS: 1. Ciprofloxacin 500 mg p.o. twice daily for 5 days. 2. Lisinopril 2.5 mg p.o. daily. 3. Metformin 500 mg p.o. twice daily. 4. Pepcid 20 mg twice daily. 5. Folic acid 800 mcg p.o. daily. 6. Ferrous sulfate p.o. daily. 7. Vitamin B12 of 5000 mcg p.o. daily. ALLERGIES: NO KNOWN DRUG ALLERGIES. DISCHARGE PLAN: The patient to follow up with primary care physician, Ms. Bri Saxena in 1 week. BRIEF COURSE DURING HOSPITALIZATION: The patient initially got admitted on the after she was found confused at home. On arrival here, the patient was found to have had urinary tract infection. The patient also had diarrheal episodes at home and was not eating or drinking. She was admitted to medical floor and has had gentle hydration done. She was placed on IV antibiotics. She has responded well to above measures. 24 hours into hospitalization, the patient was fully oriented and was ambulating and eating well. She was monitored for further 24 hours prior to discharge. She needs to continue ciprofloxacin for another 5 days. The patient has history of chronic thrombocytopenia and needs to have outpatient workup for the same via her primary care physician. Please note, I have seen and examined the patient on the day of discharge. Job ID: [id number]
--- NOTE | 2019-07-03 20:42 | PQF ---
[employer] Winform Viewer DAVID MEJIA VINAYA KUMAR MD [id number] [id number] CLINICAL DOCUMENTATION CLARIFICATION FORM: POST DISCHARGE Addendum to original discharge summary date: ____ Late entry note date: __ DATE: 07/03/19 ATTN: Pk Tate Please exercise your independent, professional judgment in responding to the clarification form. Clinical indicators are provided on the bottom of this form for your review Can you please further clarify the diagnosis based on the clinical indicators below? Please check appropriate box(es): [ ] Sepsis due to: (Pna, UTI, gangrenous gall bladder, etc.) [ ] Localized infection without sepsis [ x] Other diagnosis __Has no signs of sepsis, Please stop sending unnecessary queries without checking details [ ] Unable to determine In addition, please specify: Present on Admission (POA): [ ] Yes [ ] No [ ] Unable to determine For continuity of documentation, please document condition throughout progress notes and discharge summary. Thank You. CLINICAL INDICATORS - SIGNS / SYMPTOMS / LABS H and P pg.1- reason for admission: acute metabolic encephalopathy, UTI H and P pg.2- Vital signs BP 190/80, pulse 100 per minute, respiratory rate 20 per minute, temp 99.5degrees DS pg.1-Urine culture grew staphylococcus simulans sensitive to quinolones Laboratory- WBC 3.5L, 4.6L RISK FACTORS UTI- DS pg.1 Metabolic encephalopathy- DS pg.1 68 yo female, who currently not oriented- H and P pg.2 TREATMENTS: Ciprofloxacin 400mg IV- H and P pg.2 IV Fluids- MAR Urine culture- Microbiology (This form is maintained as a part of the permanent medical record) 2014 [employer] All Rights Reserved [email or web address] [not provided] MTDD
== END 2019-07-02 14:47 | disposition home or self-care (01) | DRG 689 ==
LOC: ERS 19:30 → 2SE 06-30 02:16 → OBSVTOIN 06-30 12:13 → T4-B 06-30 15:05
PROVIDERS: ADMIT Internal Medicine; ATTEND Internal Medicine
DX: N30.00 Acute cystitis without hematuria (principal); G93.41 Metabolic encephalopathy; J45.20 Mild intermittent asthma, uncomplicated; I10 Essential (primary) hypertension; M19.90 Unspecified osteoarthritis, unspecified site; E11.9 Type 2 diabetes mellitus without complications; B95.8 Unspecified staphylococcus as the cause of diseases classified elsewhere; D69.6 Thrombocytopenia, unspecified; Z90.710 Acquired absence of both cervix and uterus; Z90.49 Acquired absence of other specified parts of digestive tract; Z79.899 Other long term (current) drug therapy; Z79.84 Long term (current) use of oral hypoglycemic drugs
CPT/HCPCS: 36415; 36416; 51701; 70450; 71045; 80048; 80053; 81003; 81015; 84484; 85025; 87040; 87045; 87046; 87077; 87086; 87186; 87324; 87427; 87449; 93005; 96365; A4353; J0696; J0744

== ENCOUNTER 2019-08-22 11:20 | Emergency (ER) | payer MEDICARE ==
[2019-08-22 13:18] LABS: Bacteria/HPF None Seen HPF (None Seen); Bilirubin Negative (Negative); Blood, Urine 2+ (Negative); Clarity Clear (Clear); Glucose, Urine (Dipstick) 100 mg/dL (Negative); Leukocyte 25 Leu/uL (Negative); Mucous/LPF 1+ LPF (<2+); Nitrite Negative (Negative); Protein, Urine (Dipstick) Negative (Neg-Trace); RBC/HPF 21-50 HPF (0-3); Squamous Epithelial 0-3 HPF (0-3); Urobilinogen Normal mg/dL (Less than 2)
[2019-08-22 13:24] LABS: #Eosinphils 0.2 thou/uL (0.0-0.7); #Lymphocytes 1.1 thou/uL (1.20-3.40); #Monocytes 0.4 thou/uL (0.11-0.59); #Neutrophils 2.6 thou/uL (1.40-6.50); %Eosinophils 5.5 % (0.0-10.0); %Lymphocytes 24.2 % (21.0-51.0); %Monocytes 8.8 % (0.0-10.0); %Neutrophils 60.5 % (42.0-75.0); Hemoglobin 11.8 g/dL (12.0-16.0); Mean Platelet Volume 7.1 fL (7.4-10.4); Platelet Count 89 thou/uL (130-400); RBC Distribution Width 13.2 % (11.5-14.5); Red Blood Cell (RBC) Count 3.29 mill/uL (4.20-5.40); White Blood Cell (WBC) Count 4.4 thou/uL (4.8-10.8)
--- NOTE | 2019-08-22 13:36 | RAD ---
EXAM: Chest 2 views: HISTORY: Cough for 3 to 4 days COMPARISON: 09/25/2017 FINDINGS: There is a normal-sized cardiomediastinal silhouette. Atherosclerotic calcific lesions are seen in t he aorta. There is no evidence of consolidation, mass, or pleural effusion. The bones are unremarkable. IMPRESSION: No evidence of acute cardiopulmonary disease
[2019-08-22 13:38] LABS: ALT (SGPT) 18 U/L (8-55); AST (SGOT) 34 U/L (5-34); Albumin 3.1 g/dL (3.4-4.8); Alkaline Phosphatase 109 U/L (40-110); Anion Gap 11 mmol/L (10-20); BUN (Urea Nitrogen) 9 mg/dL (9.8-20.1); Bilirubin, Total 1.6 mg/dL (0.2-1.2); Calc. Creatinine Clearance 0 mL/min (70-130); Carbon Dioxide 22 mmol/L (23-31); Chloride 113 mmol/L (98-107); Estimated GFR-MDRD 75; Globulin 4.2 g/dL (2.4-3.5); Glucose 198 mg/dL (80-115); Potassium 3.6 mmol/L (3.5-5.1); Protein, Total 7.3 g/dL (6.0-8.3); Sodium 142 mmol/L (136-145)
== END 2019-08-22 14:06 | disposition home or self-care (01) ==
LOC: ERS 11:20
DX: J06.9 Acute upper respiratory infection, unspecified (principal); E11.9 Type 2 diabetes mellitus without complications; I10 Essential (primary) hypertension; J45.909 Unspecified asthma, uncomplicated; F32.9 Major depressive disorder, single episode, unspecified; Z79.899 Other long term (current) drug therapy
CPT/HCPCS: 71046; 80053; 81003; 81015; 85025; 96360; A4353

== ENCOUNTER 2020-12-03 17:30 | Observation (INO) | payer MEDICARE ==
[2020-12-03 18:14] LABS: #Eosinphils 0.3 thou/uL (0.0-0.7); #Lymphocytes 1.6 thou/uL (1.20-3.40); #Monocytes 0.3 thou/uL (0.11-0.59); #Neutrophils 1.8 thou/uL (1.40-6.50); %Basophils 0.5 % (0.0-1.0); %Eosinophils 6.7 % (0.0-10.0); %Lymphocytes 40.3 % (21.0-51.0); %Monocytes 8.5 % (0.0-10.0); Hemoglobin 13.4 g/dL (12.0-16.0); Mean Corpuscular HGB CONC 34.1 g/dL (32.0-36.0); Mean Corpuscular Hemoglobin 35.5 pg (27.0-31.0); Mean Platelet Volume 7.3 fL (7.4-10.4); Platelet Count 79 thou/uL (130-400); RBC Distribution Width 12.9 % (11.5-14.5); Red Blood Cell (RBC) Count 3.76 mill/uL (4.20-5.40)
[2020-12-03 18:34] LABS: ALT (SGPT) 17 U/L (8-55); AST (SGOT) 34 U/L (5-34); Albumin 2.7 g/dL (3.4-4.8); Alkaline Phosphatase 182 U/L (40-110); Anion Gap 10 mmol/L (10-20); BUN (Urea Nitrogen) 9 mg/dL (9.8-20.1); Bilirubin, Total 1.4 mg/dL (0.2-1.2); Calc. Creatinine Clearance 0 mL/min (70-130); Calcium 8.1 mg/dL (7.8-10.44); Carbon Dioxide 20 mmol/L (23-31); Chloride 112 mmol/L (98-107); Globulin 4.4 g/dL (2.4-3.5); Glucose 204 mg/dL (80-115); Lipase 27 U/L (8-78); Potassium 3.6 mmol/L (3.5-5.1); Protein, Total 7.1 g/dL (5.8-8.1); Sodium 138 mmol/L (136-145)
[2020-12-03] MEDS ORDERED: Aspirin Chewable 81 MG TAB ONE (19:56)
[2020-12-03] MEDS ORDERED: Ondansetron PF 4 MG/2 ML Vial IVP PRN (20:34)
[2020-12-03] MEDS ORDERED: Ondansetron ODT 4 MG TAB PO PRN (20:34)
[2020-12-03] MEDS ORDERED: Acetaminophen 325 MG TAB PO PRN (20:34)
[2020-12-03] MEDS ORDERED: Nitroglycerin 2% Ointment 1 INCH/1 GM Packet ONE (20:42)
[2020-12-03] MEDS ORDERED: Nitroglycerin 0.4 MG TAB (25 Tab Bottle) SL PRN (20:52)
[2020-12-03] MEDS ORDERED: Furosemide 20 MG/2 ML VIAL SLOW IVP SCH (21:00)
[2020-12-03 22:44] VITALS: BMI 32.7
[2020-12-03 22:59] LABS: Troponin I Less than 0.010 ng/mL (< 0.028)
[2020-12-04 02:03] LABS: Troponin I Less than 0.010 ng/mL (< 0.028)
[2020-12-04 04:56] LABS: Anion Gap 10 mmol/L (10-20); BUN (Urea Nitrogen) 11 mg/dL (9.8-20.1); Calc. Creatinine Clearance 96 mL/min (70-130); Carbon Dioxide 21 mmol/L (23-31); Chloride 113 mmol/L (98-107); Glucose 256 mg/dL (80-115); Potassium 3.5 mmol/L (3.5-5.1); Sodium 140 mmol/L (136-145)
[2020-12-04 05:07] LABS: Band 12 % (5-11); Eosinophils 5 % (0-10); Hemoglobin 11.7 g/dL (12.0-16.0); Lymphocytes 15 % (21-51); MDiff Complete? YES; Macrocytosis SLIGHT = 6-15 cells (100X) (0-5/hpf); Mean Corpuscular HGB CONC 34.2 g/dL (32.0-36.0); Mean Corpuscular Hemoglobin 36.4 pg (27.0-31.0); Monocytes 6 % (0-10); Neutrophil 58 % (42-75); Platelet Count 78 thou/uL (130-400); Platelet Morphology Comment Appears Decreased; RBC Distribution Width 12.8 % (11.5-14.5); Reactive Lymphocytes 1 % (0-10); Red Blood Cell (RBC) Count 3.22 mill/uL (4.20-5.40); White Blood Cell (WBC) Count 4.3 thou/uL (4.8-10.8)
[2020-12-04 06:12] LABS: SARS-CoV-2 PCR by NAA Not Detected (NotDetected)
[2020-12-04] MEDS ORDERED: Aspirin Chewable 81 MG TAB PO SCH (09:00)
[2020-12-04] MEDS ORDERED: Enoxaparin Sodium 40 MG/0.4 ML SYRINGE SC SCH (09:00)
[2020-12-04] MEDS ORDERED: Regadenoson 0.4 MG/5 ML SYRINGE ONE (10:23)
[2020-12-04 16:50] VITALS: BP 173/67; TEMP 98.5
== END 2020-12-04 17:06 | disposition home or self-care (01) ==
LOC: ERS 17:30 → 2NO 20:43
PROVIDERS: ADMIT Student in an Organized Health Care Education/Training Program; ATTEND Internal Medicine
DX: R07.89 Other chest pain (principal); R09.89 Other specified symptoms and signs involving the circulatory and respiratory systems; E11.9 Type 2 diabetes mellitus without complications; M19.90 Unspecified osteoarthritis, unspecified site; J45.909 Unspecified asthma, uncomplicated; I10 Essential (primary) hypertension; E80.6 Other disorders of bilirubin metabolism; I08.3 Combined rheumatic disorders of mitral, aortic and tricuspid valves; Z79.84 Long term (current) use of oral hypoglycemic drugs; Z79.899 Other long term (current) drug therapy; Z20.822 Contact with and (suspected) exposure to COVID-19
CPT/HCPCS: 71045; 78452; 80048; 80053; 83690; 83880; 84484 ×3; 85025 ×2; 93005; 93017; 93306; 94760; 96372; 96374; 99285; A9500; G0378 ×3; U0003; U0005; 36415; 87635; J1650; J1940; J2785

== ENCOUNTER 2020-12-23 14:42 | Emergency (ER) | payer MEDICARE ==
[2020-12-23 15:49] LABS: #Eosinphils 0.3 thou/uL (0.0-0.7); #Lymphocytes 1.2 thou/uL (1.20-3.40); #Monocytes 0.3 thou/uL (0.11-0.59); #Neutrophils 1.9 thou/uL (1.40-6.50); %Basophils 1.2 % (0.0-1.0); %Eosinophils 7.3 % (0.0-10.0); %Lymphocytes 31.9 % (21.0-51.0); %Monocytes 7.9 % (0.0-10.0); %Neutrophils 51.7 % (42.0-75.0); Hemoglobin 12.7 g/dL (12.0-16.0); Mean Corpuscular HGB CONC 35.5 g/dL (32.0-36.0); Mean Corpuscular Hemoglobin 37.3 pg (27.0-31.0); Mean Platelet Volume 7.4 fL (7.4-10.4); Platelet Count 72 thou/uL (130-400); RBC Distribution Width 12.8 % (11.5-14.5); Red Blood Cell (RBC) Count 3.41 mill/uL (4.20-5.40); White Blood Cell (WBC) Count 3.7 thou/uL (4.8-10.8)
[2020-12-23 16:10] LABS: ALT (SGPT) 26 U/L (8-55); AST (SGOT) 41 U/L (5-34); Albumin 2.8 g/dL (3.4-4.8); Alkaline Phosphatase 242 U/L (40-110); Anion Gap 11 mmol/L (10-20); BUN (Urea Nitrogen) 14 mg/dL (9.8-20.1); Bilirubin, Total 0.8 mg/dL (0.2-1.2); Calc. Creatinine Clearance 0 mL/min (70-130); Calcium 8.9 mg/dL (7.8-10.44); Carbon Dioxide 22 mmol/L (23-31); Chloride 109 mmol/L (98-107); Globulin 4.4 g/dL (2.4-3.5); Glucose 420 mg/dL (80-115); Potassium 4.5 mmol/L (3.5-5.1); Protein, Total 7.2 g/dL (5.8-8.1); Sodium 137 mmol/L (136-145)
[2020-12-23] MEDS ORDERED: Insulin Regular 300 UNITS/3 ML VIAL ONE (16:59)
[2020-12-23] MEDS ORDERED: Furosemide 40 MG/4 ML VIAL ONE (16:59)
[2020-12-23 18:13] LABS: Bilirubin Negative (Negative); Blood, Urine Negative (Negative); Clarity Clear (Clear); Glucose, Urine (Dipstick) Greater than 1000 mg/dL (Negative); Ketone, Urine Negative (Negative); Leukocyte Negative Leu/uL (Negative); Nitrite Negative (Negative); Protein, Urine (Dipstick) Negative (Neg-Trace); Specific Gravity, Urine 1.009 (1.002-1.036); Urobilinogen Normal mg/dL (Less than 2)
== END 2020-12-23 19:08 | disposition home or self-care (01) ==
LOC: ERS 14:42
DX: E11.65 Type 2 diabetes mellitus with hyperglycemia (principal); I10 Essential (primary) hypertension; J45.909 Unspecified asthma, uncomplicated; M19.90 Unspecified osteoarthritis, unspecified site; E78.00 Pure hypercholesterolemia, unspecified
CPT/HCPCS: 36415; 36416; 80053; 81003; 82010; 85025; 96374; 96375; J1815; J1940

== ENCOUNTER 2021-01-28 10:07 | Outpatient (CLI) | payer MEDICARE | END 2021-01-28 10:08 | disposition home or self-care (01) | LOC: BICMAMMO 10:07 | PROVIDERS: ATTEND Nurse Practitioner Family | DX: N63.10 Unspecified lump in the right breast, unspecified quadrant (principal); R92.8 Other abnormal and inconclusive findings on diagnostic imaging of breast | CPT/HCPCS: 76642; 77066; G0279 ==

== ENCOUNTER → 2021-02-03 | Day surgery (SDC) | payer MEDICARE | LOC: BICULT 12:56 | PROVIDERS: ATTEND Nurse Practitioner Family | PROC: 0H9T3ZX Drainage of Right Breast, Percutaneous Approach, Diagnostic (ICD-10-PCS; principal; 2021-02-03) | DX: C50.811 Malignant neoplasm of overlapping sites of right female breast (principal) | CPT/HCPCS: 19083; 88305; 88341; 88342 ==

== ENCOUNTER 2021-03-27 10:16 | Observation (INO) | payer MEDICARE ==
[2021-03-27] MEDS ORDERED: Acetaminophen 500 MG TAB ONE (10:41)
[2021-03-27] MEDS ORDERED: Ketamine 50 MG/ML (10ML VIAL) ONE (11:46)
[2021-03-27] MEDS ORDERED: Fentanyl 100 MCG/2 ML VIAL ONE ×2 (11:46→13:45)
[2021-03-27] MEDS ORDERED: PHENYLEPHRINE-NS 100 MCG/ML 10 ML SYRINGE ONE (12:02)
[2021-03-27] MEDS ORDERED: Ondansetron PF 4 MG/2 ML Vial ONE (12:02)
[2021-03-27] MEDS ORDERED: PROPOFOL 200 MG/20 ML VIAL ONE (12:02)
[2021-03-27] MEDS ORDERED: ePHEDrine 50 MG/ML VIAL ONE (12:02)
[2021-03-27] MEDS ORDERED: Lidocaine 1% PF 5 ML VIAL ONE (12:02)
[2021-03-27] MEDS ORDERED: Dexamethasone 20 MG/5 ML VIAL ONE (12:02)
[2021-03-27] MEDS ORDERED: Phenylephrine 10 MG/ML VIAL ONE ×2 (12:25)
[2021-03-27] MEDS ORDERED: HYDROcodone/Acetaminophen 5/325 mg Tablet ONE (14:49)
[2021-03-27] MEDS ORDERED: Promethazine HCl 25 MG/ML VIAL ONE (17:17)
[2021-03-27] MEDS ORDERED: Ondansetron ODT 4 MG TAB PO PRN (19:24)
[2021-03-27] MEDS ORDERED: Ondansetron PF 4 MG/2 ML Vial IVP PRN (19:24)
[2021-03-27] MEDS ORDERED: Acetaminophen 325 MG TAB PO PRN (19:25)
[2021-03-27] MEDS ORDERED: HYDROcodone/Acetaminophen 5/325 mg Tablet PO PRN (19:27)
[2021-03-27] MEDS ORDERED: Morphine 2 MG/ML VIAL SLOW IVP PRN (19:28)
[2021-03-27 19:36] VITALS: BMI 33.1
[2021-03-27] MEDS ORDERED: Ibuprofen 200 MG TAB PO PRN (19:36)
[2021-03-28 04:14] VITALS: TEMP 97.5
[2021-03-28 08:10] VITALS: BP 119/57
== END 2021-03-28 11:50 | disposition home or self-care (01) ==
LOC: SDC 10:16 → ONC 15:34
PROVIDERS: ADMIT Surgery; ATTEND Surgery
PROC: 0HTT0ZZ Resection of Right Breast, Open Approach (ICD-10-PCS; principal; 2021-03-27)
DX: C50.111 Malignant neoplasm of central portion of right female breast (principal); N64.1 Fat necrosis of breast; N60.31 Fibrosclerosis of right breast; M19.90 Unspecified osteoarthritis, unspecified site; J45.909 Unspecified asthma, uncomplicated; E11.9 Type 2 diabetes mellitus without complications; I10 Essential (primary) hypertension; Z17.0 Estrogen receptor positive status [ER+]; Z79.84 Long term (current) use of oral hypoglycemic drugs; Z79.899 Other long term (current) drug therapy
CPT/HCPCS: 36416; 88309; G0378; J0690; J1100; J2370; J2405; J2550; J2704; J3010; J3490

== ENCOUNTER 2021-09-09 18:33 | Inpatient (IN) | payer MEDICARE ==
[2021-09-09 20:46] LABS: Bacteria/HPF None Seen HPF (None Seen); Bilirubin Negative (Negative); Blood, Urine Negative (Negative); Clarity Clear (Clear); Glucose, Urine (Dipstick) 50 mg/dL (Negative); Ketone, Urine Negative (Negative); Leukocyte Negative Leu/uL (Negative); Nitrite Negative (Negative); Protein, Urine (Dipstick) 30 mg/dL (Neg-Trace); RBC/HPF 0-3 HPF (0-3); Specific Gravity, Urine 1.031 (1.002-1.036); Squamous Epithelial None Seen HPF (0-3); Urobilinogen 3 mg/dL (Less than 2); WBC/HPF 0-3 HPF (0-3); pH, Urine 6.5 (5.0-9.0)
[2021-09-09 20:54] LABS: Hemoglobin 5.6 g/dL (12.0-16.0)
[2021-09-09 21:01] LABS: ALT (SGPT) 22 U/L (8-55); AST (SGOT) 37 U/L (5-34); Albumin 2.7 g/dL (3.4-4.8); Alkaline Phosphatase 125 U/L (40-110); Anion Gap 9 mmol/L (10-20); BUN (Urea Nitrogen) 15 mg/dL (9.8-20.1); Bilirubin, Total 1.3 mg/dL (0.2-1.2); Calc. Creatinine Clearance 0 mL/min (70-130); Calcium 8.9 mg/dL (7.8-10.44); Carbon Dioxide 23 mmol/L (23-31); Chloride 114 mmol/L (98-107); Globulin 3.8 g/dL (2.4-3.5); Glucose 135 mg/dL (83-110); Lipase 33 U/L (8-78); Potassium 3.6 mmol/L (3.5-5.1); Protein, Total 6.5 g/dL (5.8-8.1); Sodium 142 mmol/L (136-145)
[2021-09-09 21:20] LABS: Band 14 % (5-11); Eosinophils 5 % (0-10); Lymphocytes 15 % (21-51); MDiff Complete? YES; Macrocytosis SLIGHT = 6-15 cells (100X) (0-5/hpf); Mean Corpuscular HGB CONC 34.7 g/dL (32.0-36.0); Mean Corpuscular Hemoglobin 38.2 pg (27.0-31.0); Mean Platelet Volume 6.2 fL (7.4-10.4); Monocytes 4 % (0-10); Neutrophil 62 % (42-75); Platelet Count 119 thou/uL (130-400); Platelet Morphology Comment Appears Decreased; RBC Distribution Width 12.9 % (11.5-14.5); Red Blood Cell (RBC) Count 1.46 mill/uL (4.20-5.40); White Blood Cell (WBC) Count 8.5 thou/uL (4.8-10.8)
[2021-09-09] MEDS ORDERED: Ondansetron ODT 4 MG TAB SL PRN (22:45)
[2021-09-09] MEDS ORDERED: Acetaminophen 325 MG TAB PO PRN (22:45)
[2021-09-09] MEDS ORDERED: Ondansetron PF 4 MG/2 ML Vial IVP PRN (22:45)
[2021-09-09] MEDS ORDERED: Senokot S 8.6-50 MG TAB PO PRN (23:23)
[2021-09-09] MEDS ORDERED: Bisacodyl 5 MG TAB PO PRN (23:23)
[2021-09-09] MEDS ORDERED: Dextrose 5% in Water 1,000 ML IV PRN (23:40)
[2021-09-09] MEDS ORDERED: Dextrose 50% Abboject 50 ML SYRINGE SLOW IVP PRN (23:40)
[2021-09-09] MEDS ORDERED: Ferrous Sulfate 325 MG TAB PO SCH (23:59)
[2021-09-09] MEDS ORDERED: Permethrin 5% Cream 60 GM TUBE TOP SCH (23:59)
[2021-09-10] MEDS ORDERED: Pantoprazole 40 MG VIAL IVP SCH (00:15)
[2021-09-10] MEDS ORDERED: Cefepime 2 GM in Sodium Chloride 0.9% 100 ML IVPB SCH (00:30)
[2021-09-10] MEDS ORDERED: Vancomycin 1.5 GRAM/300 ML BAG 1.5 GM in Premix Bag 1 BAG IVPB SCH (01:00)
[2021-09-10] MEDS ORDERED: Labetalol HCl 100 MG/20 ML VIAL SLOW IVP PRN (01:45)
[2021-09-10 08:06] LABS: Amphetamine Not Detected (NotDetected); Barbiturates Screen Not Detected (NotDetected); Benzodiazepine Screen Not Detected (NotDetected); Cocaine Metabolite Screen Not Detected (NotDetected); Methadone Not Detected (NotDetected); Methamphetamine Not Detected (NotDetected); Opiate Screen Not Detected (NotDetected); Oxycodone Screen Not Detected (NotDetected); Phencyclidine (PCP) Not Detected (NotDetected); THC/Cannabinoid Screen Not Detected (NotDetected); Tricyclic Screen Not Detected (NotDetected)
[2021-09-10] MEDS: Ferrous Sulfate 325 MG TAB PO SCH ×2 (09:03→16:08)
[2021-09-10] MEDS: Lisinopril 5 MG TAB PO SCH (09:03)
[2021-09-10] MEDS: Cefepime 2 GM in Sodium Chloride 0.9% 100 ML IVPB SCH ×3 (09:03→23:39)
[2021-09-10 09:25] LABS: #Eosinphils 0.5 thou/uL (0.0-0.7); #Lymphocytes 0.9 thou/uL (1.20-3.40); #Monocytes 0.9 thou/uL (0.11-0.59); #Neutrophils 4.9 thou/uL (1.40-6.50); %Basophils 0.2 % (0.0-1.0); %Eosinophils 6.5 % (0.0-10.0); %Lymphocytes 12.1 % (21.0-51.0); %Monocytes 12.6 % (0.0-10.0); %Neutrophils 68.6 % (42.0-75.0); Hemoglobin 12.3 g/dL (12.0-16.0); Mean Corpuscular HGB CONC 33.9 g/dL (32.0-36.0); Mean Corpuscular Hemoglobin 35.2 pg (27.0-31.0); Mean Platelet Volume 6.6 fL (7.4-10.4); Platelet Count 75 thou/uL (130-400); RBC Distribution Width 17.3 % (11.5-14.5); Red Blood Cell (RBC) Count 3.48 mill/uL (4.20-5.40); White Blood Cell (WBC) Count 7.2 thou/uL (4.8-10.8)
[2021-09-10 09:48] LABS: ALT (SGPT) 19 U/L (8-55); AST (SGOT) 35 U/L (5-34); Albumin 2.3 g/dL (3.4-4.8); Alkaline Phosphatase 80 U/L (40-110); Anion Gap 12 mmol/L (10-20); BUN (Urea Nitrogen) 13 mg/dL (9.8-20.1); Bilirubin, Total 3.2 mg/dL (0.2-1.2); Calc. Creatinine Clearance 90 mL/min (70-130); Carbon Dioxide 16 mmol/L (23-31); Chloride 116 mmol/L (98-107); Globulin 3.1 g/dL (2.4-3.5); Glucose 116 mg/dL (83-110); Potassium 3.6 mmol/L (3.5-5.1); Protein, Total 5.4 g/dL (5.8-8.1); Sodium 140 mmol/L (136-145)
[2021-09-10 12:05] LABS: SARS-CoV-2 PCR by NAA Not Detected (NotDetected)
[2021-09-10] MEDS: HumaLOG 300 UNITS/3 ML VIAL SC PRN ×2 (13:33→17:18)
[2021-09-10] MEDS: Vancomycin 1 GM in Premix Bag 1 BAG IVPB SCH (13:34)
[2021-09-10] MEDS: Acetaminophen 325 MG TAB PO PRN (17:49)
[2021-09-10 19:33] LABS: INR-International Normal Ratio 1.4; Prothrombin Time 17.7 sec (12.0-14.7)
[2021-09-10 19:34] LABS: PTT 40.4 sec (22.9-36.1)
[2021-09-10] MEDS: Sodium Chloride 0.9% 1,000 ML IV SCH (21:24)
[2021-09-11] MEDS: Vancomycin 1 GM in Premix Bag 1 BAG IVPB SCH ×2 (01:49→16:01)
[2021-09-11 04:45] LABS: #Eosinphils 0.2 thou/uL (0.0-0.7); #Lymphocytes 0.9 thou/uL (1.20-3.40); #Monocytes 0.8 thou/uL (0.11-0.59); #Neutrophils 8.2 thou/uL (1.40-6.50); %Basophils 0.2 % (0.0-1.0); %Eosinophils 2.2 % (0.0-10.0); %Lymphocytes 9.1 % (21.0-51.0); %Monocytes 8.2 % (0.0-10.0); %Neutrophils 80.3 % (42.0-75.0); Hemoglobin 13.5 g/dL (12.0-16.0); Mean Corpuscular HGB CONC 34.3 g/dL (32.0-36.0); Mean Corpuscular Hemoglobin 35.2 pg (27.0-31.0); Mean Platelet Volume 6.7 fL (7.4-10.4); Platelet Count 76 thou/uL (130-400); RBC Distribution Width 16.8 % (11.5-14.5); Red Blood Cell (RBC) Count 3.84 mill/uL (4.20-5.40); White Blood Cell (WBC) Count 10.2 thou/uL (4.8-10.8)
[2021-09-11 05:05] LABS: ALT (SGPT) 22 U/L (8-55); AST (SGOT) 35 U/L (5-34); Albumin 2.2 g/dL (3.4-4.8); Alkaline Phosphatase 114 U/L (40-110); Anion Gap 11 mmol/L (10-20); BUN (Urea Nitrogen) 13 mg/dL (9.8-20.1); Bilirubin, Total 2.1 mg/dL (0.2-1.2); Calc. Creatinine Clearance 84 mL/min (70-130); Calcium 7.9 mg/dL (7.8-10.44); Carbon Dioxide 16 mmol/L (23-31); Chloride 113 mmol/L (98-107); Globulin 3.6 g/dL (2.4-3.5); Glucose 198 mg/dL (83-110); Potassium 3.6 mmol/L (3.5-5.1); Protein, Total 5.8 g/dL (5.8-8.1); Sodium 136 mmol/L (136-145)
[2021-09-11 05:27] LABS: HBCM Index 0.07 S/CO (0-0.79); HBSAg Index 0.53 S/CO (0-0.99); Hep A IgM AB Non-Reactive (NonReactive); Hep A IgM S/CO 0.08 S/CO (0-0.79); Hep B Surf Ag Non-Reactive S/CO (NonReactive); Hep C IgG Ab Non-Reactive (NonReactive); Hep C Index 0.14 S/CO (0-0.79); Hepatitis B Core IgM Abs Non-Reactive (NonReactive)
[2021-09-11] MEDS: Cefepime 2 GM in Sodium Chloride 0.9% 100 ML IVPB SCH ×2 (10:01→16:03)
[2021-09-11] MEDS: Rifaximin 550 MG TAB PO SCH ×2 (10:01→19:53)
[2021-09-11] MEDS: Lisinopril 5 MG TAB PO SCH (10:02)
[2021-09-11] MEDS: Pantoprazole 40 MG VIAL IVP SCH ×2 (10:05→19:56)
[2021-09-11] MEDS: Sodium Chloride 0.9% 1,000 ML IV SCH ×2 (10:07→22:39)
[2021-09-11 15:12] LABS: Vancomycin, Trough 11.3 ug/mL
[2021-09-11] MEDS ORDERED: Lice Shampoo 120 ML BOT TOP SCH (17:00)
[2021-09-11] MEDS: VANCOMYCIN 1.25 GM/250 ML BAG 1.25 GM in Premix Bag 1 BAG IVPB SCH (18:37)
[2021-09-11] MEDS: HumaLOG 300 UNITS/3 ML VIAL SC PRN (20:13)
[2021-09-12] MEDS: Cefepime 2 GM in Sodium Chloride 0.9% 100 ML IVPB SCH ×4 (00:18→23:50)
[2021-09-12] MEDS: VANCOMYCIN 1.25 GM/250 ML BAG 1.25 GM in Premix Bag 1 BAG IVPB SCH ×2 (04:50→17:45)
[2021-09-12 06:04] LABS: ALT (SGPT) 18 U/L (8-55); AST (SGOT) 30 U/L (5-34); Albumin 2.2 g/dL (3.4-4.8); Alkaline Phosphatase 93 U/L (40-110); Anion Gap 7 mmol/L (10-20); BUN (Urea Nitrogen) 13 mg/dL (9.8-20.1); Calc. Creatinine Clearance 92 mL/min (70-130); Carbon Dioxide 16 mmol/L (23-31); Chloride 115 mmol/L (98-107); Globulin 3.6 g/dL (2.4-3.5); Glucose 109 mg/dL (83-110); Lipase 39 U/L (8-78); Magnesium 1.8 mg/dL (1.6-2.6); Potassium 3.1 mmol/L (3.5-5.1); Protein, Total 5.8 g/dL (5.8-8.1); Sodium 135 mmol/L (136-145)
[2021-09-12 06:08] LABS: Anisocytosis SLIGHT = 6-15 cells (100X) (0-5/hpf); Band 4 % (5-11); Eosinophils 5 % (0-10); Hemoglobin 12.8 g/dL (12.0-16.0); Lymphocytes 6 % (21-51); MDiff Complete? YES; Macrocytosis SLIGHT = 6-15 cells (100X) (0-5/hpf); Mean Corpuscular HGB CONC 34.1 g/dL (32.0-36.0); Mean Corpuscular Hemoglobin 35.5 pg (27.0-31.0); Monocytes 4 % (0-10); Neutrophil 80 % (42-75); Platelet Count 82 thou/uL (130-400); Platelet Morphology Comment Appears Decreased; RBC Distribution Width 16.6 % (11.5-14.5); Red Blood Cell (RBC) Count 3.62 mill/uL (4.20-5.40); White Blood Cell (WBC) Count 9.4 thou/uL (4.8-10.8)
[2021-09-12 06:09] LABS: Phosphorus 1.9 mg/dL (2.3-4.7)
[2021-09-12] MEDS: Spironolactone 25 MG TAB PO SCH (09:07)
[2021-09-12] MEDS: Lisinopril 5 MG TAB PO SCH (09:08)
[2021-09-12] MEDS: Pantoprazole 40 MG VIAL IVP SCH ×2 (09:08→20:13)
[2021-09-12] MEDS: Rifaximin 550 MG TAB PO SCH ×2 (09:08→20:13)
[2021-09-12] MEDS: Furosemide 20 MG TAB PO SCH (09:08)
[2021-09-12] MEDS: K-Phos Neutral 250 MG TAB PO SCH ×2 (09:23→16:17)
[2021-09-12] MEDS: Melatonin 3 MG TAB PO PRN (23:49)
[2021-09-13] MEDS: HumaLOG 300 UNITS/3 ML VIAL SC PRN (04:32)
[2021-09-13 05:32] LABS: #Basophils 0.1 thou/uL (0.0-0.2); #Eosinphils 0.4 thou/uL (0.0-0.7); #Lymphocytes 0.8 thou/uL (1.20-3.40); #Monocytes 0.8 thou/uL (0.11-0.59); #Neutrophils 6.1 thou/uL (1.40-6.50); %Basophils 1.4 % (0.0-1.0); %Eosinophils 5.2 % (0.0-10.0); %Lymphocytes 9.3 % (21.0-51.0); %Monocytes 9.7 % (0.0-10.0); %Neutrophils 74.3 % (42.0-75.0); Hemoglobin 11.9 g/dL (12.0-16.0); Mean Corpuscular HGB CONC 33.4 g/dL (32.0-36.0); Mean Corpuscular Hemoglobin 35.1 pg (27.0-31.0); Mean Platelet Volume 8.1 fL (7.4-10.4); Platelet Count 55 thou/uL (130-400); RBC Distribution Width 16.2 % (11.5-14.5); White Blood Cell (WBC) Count 8.2 thou/uL (4.8-10.8)
[2021-09-13 05:36] LABS: ALT (SGPT) 28 U/L (8-55); AST (SGOT) 62 U/L (5-34); Albumin 2.1 g/dL (3.4-4.8); Alkaline Phosphatase 115 U/L (40-110); Anion Gap 9 mmol/L (10-20); BUN (Urea Nitrogen) 12 mg/dL (9.8-20.1); Bilirubin, Total 1.3 mg/dL (0.2-1.2); Calc. Creatinine Clearance 87 mL/min (70-130); Calcium 7.7 mg/dL (7.8-10.44); Carbon Dioxide 18 mmol/L (23-31); Chloride 112 mmol/L (98-107); Globulin 3.7 g/dL (2.4-3.5); Glucose 148 mg/dL (83-110); Potassium 3.2 mmol/L (3.5-5.1); Protein, Total 5.8 g/dL (5.8-8.1); Sodium 136 mmol/L (136-145)
[2021-09-13 05:43] LABS: Vancomycin, Trough 15.9 ug/mL
[2021-09-13] MEDS: VANCOMYCIN 1.25 GM/250 ML BAG 1.25 GM in Premix Bag 1 BAG IVPB SCH ×2 (05:51→18:27)
[2021-09-13] MEDS: Cefepime 2 GM in Sodium Chloride 0.9% 100 ML IVPB SCH ×2 (10:06→16:55)
[2021-09-13] MEDS: Folic Acid 1 MG TAB PO SCH (10:13)
[2021-09-13] MEDS: Thiamine 100 MG TAB PO SCH (10:13)
[2021-09-13] MEDS: Multivitamin W/ Minerals 1 TAB PO SCH (10:13)
[2021-09-13] MEDS: Spironolactone 25 MG TAB PO SCH (10:13)
[2021-09-13] MEDS: Rifaximin 550 MG TAB PO SCH ×2 (10:14→21:00)
[2021-09-13] MEDS: Lisinopril 5 MG TAB PO SCH (10:14)
[2021-09-13] MEDS: Furosemide 20 MG TAB PO SCH (10:16)
[2021-09-13] MEDS: Pantoprazole 40 MG VIAL IVP SCH ×2 (11:52→21:00)
[2021-09-13 15:57] LABS: ANA Symphony (Qualitative) Negative (Negative); ANA Symphony (Quantitative) 0.5 Ratio (< 0.7 Negative); EliA Vaculitis New Method **** NEW METHOD ****; Mitochondrial Ab 1.8 U/mL (<4 Negative); dsDNA IgG Antibody 1.6 IU/mL (<10 Negative)
[2021-09-13] MEDS: Melatonin 3 MG TAB PO PRN (21:00)
[2021-09-14] MEDS: Cefepime 2 GM in Sodium Chloride 0.9% 100 ML IVPB SCH ×3 (00:27→16:30)
[2021-09-14] MEDS: HumaLOG 300 UNITS/3 ML VIAL SC PRN (04:57)
[2021-09-14] MEDS: Acetaminophen 325 MG TAB PO PRN ×2 (04:57→21:05)
[2021-09-14] MEDS: VANCOMYCIN 1.25 GM/250 ML BAG 1.25 GM in Premix Bag 1 BAG IVPB SCH ×2 (04:57→16:35)
[2021-09-14] MEDS: Pantoprazole 40 MG VIAL IVP SCH ×2 (08:32→21:05)
[2021-09-14] MEDS: Multivitamin W/ Minerals 1 TAB PO SCH (08:32)
[2021-09-14] MEDS: Folic Acid 1 MG TAB PO SCH (08:32)
[2021-09-14] MEDS: Lisinopril 5 MG TAB PO SCH (08:32)
[2021-09-14] MEDS: Rifaximin 550 MG TAB PO SCH ×2 (08:32→21:06)
[2021-09-14] MEDS: Spironolactone 25 MG TAB PO SCH (08:32)
[2021-09-14] MEDS: Furosemide 20 MG TAB PO SCH (08:32)
[2021-09-14] MEDS: Thiamine 100 MG TAB PO SCH (08:32)
[2021-09-14] MEDS ORDERED: Magnevist 469MG/ML 20 ML VIAL ONE (11:54)
[2021-09-14 14:13] LABS: Smooth Muscle Total ABS 16 Units (0-19)
[2021-09-15] MEDS: Cefepime 2 GM in Sodium Chloride 0.9% 100 ML IVPB SCH ×3 (00:11→16:08)
[2021-09-15 06:10] LABS: Vancomycin, Trough 23.7 ug/mL
[2021-09-15 06:30] LABS: Anion Gap 13 mmol/L (10-20); BUN (Urea Nitrogen) 13 mg/dL (9.8-20.1); Calc. Creatinine Clearance 95 mL/min (70-130); Calcium 7.8 mg/dL (7.8-10.44); Carbon Dioxide 15 mmol/L (23-31); Chloride 114 mmol/L (98-107); Glucose 116 mg/dL (83-110); Sodium 138 mmol/L (136-145)
[2021-09-15] MEDS: VANCOMYCIN 1.25 GM/250 ML BAG 1.25 GM in Premix Bag 1 BAG IVPB SCH (06:33)
[2021-09-15 08:12] LABS: #Eosinphils 0.4 thou/uL (0.0-0.7); #Lymphocytes 0.6 thou/uL (1.20-3.40); #Monocytes 0.8 thou/uL (0.11-0.59); #Neutrophils 4.5 thou/uL (1.40-6.50); %Eosinophils 6.7 % (0.0-10.0); %Lymphocytes 9.9 % (21.0-51.0); %Monocytes 13.1 % (0.0-10.0); %Neutrophils 70.3 % (42.0-75.0); Hemoglobin 11.9 g/dL (12.0-16.0); Mean Corpuscular HGB CONC 33.4 g/dL (32.0-36.0); Mean Corpuscular Hemoglobin 34.5 pg (27.0-31.0); Mean Platelet Volume 6.9 fL (7.4-10.4); Platelet Count 87 thou/uL (130-400); RBC Distribution Width 15.9 % (11.5-14.5); Red Blood Cell (RBC) Count 3.46 mill/uL (4.20-5.40); White Blood Cell (WBC) Count 6.4 thou/uL (4.8-10.8)
[2021-09-15] MEDS: Folic Acid 1 MG TAB PO SCH (09:03)
[2021-09-15] MEDS: Furosemide 20 MG TAB PO SCH (09:03)
[2021-09-15] MEDS: Spironolactone 25 MG TAB PO SCH (09:03)
[2021-09-15] MEDS: Rifaximin 550 MG TAB PO SCH ×2 (09:03→20:48)
[2021-09-15] MEDS: Lisinopril 5 MG TAB PO SCH (09:03)
[2021-09-15] MEDS: Multivitamin W/ Minerals 1 TAB PO SCH (09:03)
[2021-09-15] MEDS: Vancomycin 1 GM in Premix Bag 1 BAG IVPB SCH ×2 (09:04→20:49)
[2021-09-15] MEDS: Pantoprazole 40 MG VIAL IVP SCH ×2 (09:04→20:48)
[2021-09-15] MEDS: Thiamine 100 MG TAB PO SCH (09:04)
[2021-09-15] MEDS: Acetaminophen 325 MG TAB PO PRN ×2 (11:24→20:48)
[2021-09-15 11:54] LABS: Lactic Acid 1.4 mmol/L (0.5-2.2)
[2021-09-15] MEDS: Erythromycin Base 0.5% Oint 1 GM TUBE R EYE SCH (12:47)
[2021-09-15 15:39] LABS: Alpha-1-Antitrypsin 144 mg/dL (101-187)
[2021-09-15] MEDS: ALPRAZolam 0.25 MG TAB PO SCH ×2 (15:56→20:48)
[2021-09-15] MEDS: HumaLOG 300 UNITS/3 ML VIAL SC PRN ×2 (16:09→20:50)
[2021-09-16] MEDS: Cefepime 2 GM in Sodium Chloride 0.9% 100 ML IVPB SCH ×5 (00:25→23:58)
[2021-09-16] MEDS: Pantoprazole 40 MG VIAL IVP SCH ×2 (08:49→20:56)
[2021-09-16] MEDS: Thiamine 100 MG TAB PO SCH (08:49)
[2021-09-16] MEDS: Furosemide 20 MG TAB PO SCH (08:49)
[2021-09-16] MEDS: Rifaximin 550 MG TAB PO SCH ×2 (08:49→20:55)
[2021-09-16] MEDS: Multivitamin W/ Minerals 1 TAB PO SCH (08:49)
[2021-09-16] MEDS: Lisinopril 5 MG TAB PO SCH (08:49)
[2021-09-16] MEDS: Folic Acid 1 MG TAB PO SCH (08:49)
[2021-09-16] MEDS: ALPRAZolam 0.25 MG TAB PO SCH ×3 (08:49→20:56)
[2021-09-16] MEDS: Spironolactone 25 MG TAB PO SCH (08:50)
[2021-09-16] MEDS: Erythromycin Base 0.5% Oint 1 GM TUBE R EYE SCH (08:50)
[2021-09-16] MEDS: Vancomycin 1 GM in Premix Bag 1 BAG IVPB SCH (08:50)
[2021-09-16] MEDS: Acetaminophen 325 MG TAB PO PRN (10:56)
[2021-09-16] MEDS ORDERED: Morphine 2 MG/ML VIAL SLOW IVP PRN (10:57)
[2021-09-16] MEDS: Morphine 4 MG/ML VIAL SLOW IVP PRN (11:03)
[2021-09-16] MEDS ORDERED: LIDOCAINE 4% Topical Sol 4 ML SOLN.PK.G. TP PRN (11:03)
[2021-09-16] MEDS: HumaLOG 300 UNITS/3 ML VIAL SC PRN ×2 (17:35→23:57)
[2021-09-16 20:36] LABS: Vancomycin, Trough 23.1 ug/mL
[2021-09-16 22:10] LABS: SARS-CoV-2 PCR by NAA Not Detected (NotDetected)
[2021-09-17] MEDS: HumaLOG 300 UNITS/3 ML VIAL SC PRN ×4 (05:09→20:49)
[2021-09-17] MEDS ORDERED: Vancomycin 1.5 GRAM/300 ML BAG 1.5 GM in Premix Bag 1 BAG IVPB SCH (06:00)
[2021-09-17] MEDS ORDERED: LIDOCAINE 4% Topical Sol 4 ML SOLN.PK.G. TP SCH (09:00)
[2021-09-17] MEDS: Cefepime 2 GM in Sodium Chloride 0.9% 100 ML IVPB SCH (09:55)
[2021-09-17] MEDS: Rifaximin 550 MG TAB PO SCH ×2 (09:57→20:51)
[2021-09-17] MEDS: Folic Acid 1 MG TAB PO SCH (09:57)
[2021-09-17] MEDS: Lisinopril 5 MG TAB PO SCH (09:57)
[2021-09-17] MEDS: Furosemide 20 MG TAB PO SCH (09:58)
[2021-09-17] MEDS: Thiamine 100 MG TAB PO SCH (09:58)
[2021-09-17] MEDS: ALPRAZolam 0.25 MG TAB PO SCH ×3 (09:58→20:51)
[2021-09-17] MEDS: Pantoprazole 40 MG VIAL IVP SCH ×2 (09:58→20:49)
[2021-09-17] MEDS: Multivitamin W/ Minerals 1 TAB PO SCH (09:58)
[2021-09-17] MEDS: Spironolactone 25 MG TAB PO SCH (09:58)
[2021-09-17] MEDS: Erythromycin Base 0.5% Oint 1 GM TUBE R EYE SCH (09:59)
[2021-09-17] MEDS: Sulfamethoxazole/Trimethoprim 320 MG in Dextrose 5% in Water 500 ML IVPB SCH (20:48)
[2021-09-18] MEDS: Morphine 4 MG/ML VIAL SLOW IVP PRN ×2 (00:06→08:34)
[2021-09-18] MEDS: Melatonin 3 MG TAB PO PRN (00:07)
[2021-09-18 04:12] VITALS: BMI 31.1
[2021-09-18] MEDS: HumaLOG 300 UNITS/3 ML VIAL SC PRN ×3 (04:31→20:36)
[2021-09-18 06:59] LABS: #Eosinphils 0.9 thou/uL (0.0-0.7); #Lymphocytes 1.1 thou/uL (1.20-3.40); #Monocytes 0.9 thou/uL (0.11-0.59); #Neutrophils 3.9 thou/uL (1.40-6.50); %Basophils 0.3 % (0.0-1.0); %Eosinophils 13.3 % (0.0-10.0); %Monocytes 13.7 % (0.0-10.0); %Neutrophils 56.7 % (42.0-75.0); Hemoglobin 10.7 g/dL (12.0-16.0); Mean Corpuscular HGB CONC 33.5 g/dL (32.0-36.0); Mean Corpuscular Hemoglobin 35.8 pg (27.0-31.0); Mean Platelet Volume 6.7 fL (7.4-10.4); Platelet Count 118 thou/uL (130-400); White Blood Cell (WBC) Count 6.9 thou/uL (4.8-10.8)
[2021-09-18 07:08] LABS: Anion Gap 5 mmol/L (10-20); BUN (Urea Nitrogen) 13 mg/dL (9.8-20.1); Calc. Creatinine Clearance 97 mL/min (70-130); Calcium 7.7 mg/dL (7.8-10.44); Carbon Dioxide 23 mmol/L (23-31); Chloride 108 mmol/L (98-107); Glucose 135 mg/dL (83-110); Sodium 133 mmol/L (136-145)
[2021-09-18 07:19] LABS: Potassium 2.8 mmol/L (3.5-5.1)
[2021-09-18] MEDS ORDERED: Potassium Chloride 20 MEQ TAB PO SCH ×2 (08:00→09:45)
[2021-09-18] MEDS: Spironolactone 25 MG TAB PO SCH (08:15)
[2021-09-18] MEDS: Folic Acid 1 MG TAB PO SCH (08:15)
[2021-09-18] MEDS: Furosemide 20 MG TAB PO SCH (08:15)
[2021-09-18] MEDS: Thiamine 100 MG TAB PO SCH (08:16)
[2021-09-18] MEDS: ALPRAZolam 0.25 MG TAB PO SCH ×3 (08:16→20:37)
[2021-09-18] MEDS: Pantoprazole 40 MG VIAL IVP SCH ×2 (08:16→20:36)
[2021-09-18] MEDS: Multivitamin W/ Minerals 1 TAB PO SCH (08:16)
[2021-09-18] MEDS: Rifaximin 550 MG TAB PO SCH ×2 (08:16→20:37)
[2021-09-18] MEDS: Erythromycin Base 0.5% Oint 1 GM TUBE R EYE SCH (08:17)
[2021-09-18] MEDS: Lisinopril 5 MG TAB PO SCH (08:25)
[2021-09-18] MEDS: Sulfamethoxazole/Trimethoprim 320 MG in Dextrose 5% in Water 500 ML IVPB SCH (12:27)
[2021-09-18 15:05] LABS: Potassium 4.3 mmol/L (3.5-5.1)
[2021-09-18] MEDS: Sulfameth/Trimethoprim DS 800-160mg TAB PO SCH (20:37)
[2021-09-18] MEDS: Acetaminophen 325 MG TAB PO PRN (20:37)
[2021-09-19] MEDS: ALPRAZolam 0.25 MG TAB PO SCH ×3 (08:08→20:29)
[2021-09-19] MEDS: Lisinopril 5 MG TAB PO SCH (08:12)
[2021-09-19] MEDS: Pantoprazole 40 MG VIAL IVP SCH ×2 (08:12→20:27)
[2021-09-19] MEDS: Furosemide 20 MG TAB PO SCH (08:12)
[2021-09-19] MEDS: Sulfameth/Trimethoprim DS 800-160mg TAB PO SCH ×2 (08:13→20:29)
[2021-09-19] MEDS: Folic Acid 1 MG TAB PO SCH (08:13)
[2021-09-19] MEDS: Thiamine 100 MG TAB PO SCH (08:13)
[2021-09-19] MEDS: Rifaximin 550 MG TAB PO SCH ×2 (08:13→20:28)
[2021-09-19] MEDS: Erythromycin Base 0.5% Oint 1 GM TUBE R EYE SCH (08:13)
[2021-09-19] MEDS: Spironolactone 25 MG TAB PO SCH (08:13)
[2021-09-19] MEDS: Multivitamin W/ Minerals 1 TAB PO SCH (08:13)
[2021-09-19] MEDS: HumaLOG 300 UNITS/3 ML VIAL SC PRN (16:49)
[2021-09-19] MEDS: Acetaminophen 325 MG TAB PO PRN (20:28)
[2021-09-20] MEDS: Spironolactone 25 MG TAB PO SCH (08:13)
[2021-09-20] MEDS: Multivitamin W/ Minerals 1 TAB PO SCH (08:13)
[2021-09-20] MEDS: Thiamine 100 MG TAB PO SCH (08:13)
[2021-09-20] MEDS: Folic Acid 1 MG TAB PO SCH (08:13)
[2021-09-20] MEDS: ALPRAZolam 0.25 MG TAB PO SCH ×3 (08:13→20:06)
[2021-09-20] MEDS: Sulfameth/Trimethoprim DS 800-160mg TAB PO SCH ×2 (08:13→20:06)
[2021-09-20] MEDS: Pantoprazole 40 MG VIAL IVP SCH ×2 (08:13→20:06)
[2021-09-20] MEDS: Rifaximin 550 MG TAB PO SCH ×2 (08:13→20:06)
[2021-09-20] MEDS: Furosemide 20 MG TAB PO SCH (08:13)
[2021-09-20] MEDS: Lisinopril 5 MG TAB PO SCH (08:13)
[2021-09-20] MEDS: Erythromycin Base 0.5% Oint 1 GM TUBE R EYE SCH (08:14)
[2021-09-20] MEDS: HumaLOG 300 UNITS/3 ML VIAL SC PRN (17:30)
[2021-09-21 06:24] LABS: Anion Gap 9 mmol/L (10-20); BUN (Urea Nitrogen) 11 mg/dL (9.8-20.1); Calc. Creatinine Clearance 90 mL/min (70-130); Calcium 8.1 mg/dL (7.8-10.44); Carbon Dioxide 22 mmol/L (23-31); Chloride 108 mmol/L (98-107); Glucose 112 mg/dL (83-110); Potassium 4.1 mmol/L (3.5-5.1); Sodium 135 mmol/L (136-145)
[2021-09-21 08:14] VITALS: TEMP 98
[2021-09-21] MEDS: ALPRAZolam 0.25 MG TAB PO SCH ×2 (08:42→15:59)
[2021-09-21] MEDS: Rifaximin 550 MG TAB PO SCH (08:42)
[2021-09-21] MEDS: Spironolactone 25 MG TAB PO SCH (08:42)
[2021-09-21] MEDS: Thiamine 100 MG TAB PO SCH (08:42)
[2021-09-21] MEDS: Folic Acid 1 MG TAB PO SCH (08:42)
[2021-09-21] MEDS: Multivitamin W/ Minerals 1 TAB PO SCH (08:42)
[2021-09-21] MEDS: Furosemide 20 MG TAB PO SCH (08:42)
[2021-09-21] MEDS: Sulfameth/Trimethoprim DS 800-160mg TAB PO SCH (08:42)
[2021-09-21] MEDS: Pantoprazole 40 MG VIAL IVP SCH (08:43)
[2021-09-21] MEDS: Erythromycin Base 0.5% Oint 1 GM TUBE R EYE SCH (08:46)
[2021-09-21] MEDS: Morphine 4 MG/ML VIAL SLOW IVP PRN (09:37)
[2021-09-21] MEDS: Lisinopril 5 MG TAB PO SCH (09:42)
[2021-09-21 09:59] LABS: #Basophils 0.1 thou/uL (0.0-0.2); #Eosinphils 0.6 thou/uL (0.0-0.7); #Lymphocytes 0.8 thou/uL (1.20-3.40); #Monocytes 0.7 thou/uL (0.11-0.59); %Eosinophils 11.8 % (0.0-10.0); %Lymphocytes 16.3 % (21.0-51.0); %Neutrophils 57.9 % (42.0-75.0); Hemoglobin 11.4 g/dL (12.0-16.0); Mean Corpuscular HGB CONC 33.7 g/dL (32.0-36.0); Mean Corpuscular Hemoglobin 36.1 pg (27.0-31.0); Mean Platelet Volume 6.4 fL (7.4-10.4); Platelet Count 110 thou/uL (130-400); RBC Distribution Width 16.4 % (11.5-14.5); Red Blood Cell (RBC) Count 3.17 mill/uL (4.20-5.40); White Blood Cell (WBC) Count 5.1 thou/uL (4.8-10.8)
[2021-09-21 17:38] VITALS: BP 97/61
[2021-09-21] MEDS: HumaLOG 300 UNITS/3 ML VIAL SC PRN (18:18)
== END 2021-09-21 19:20 | DRG 441 ==
LOC: ERS 18:33 → T4-B 22:24 → OBSVTOIN 09-10 16:22
PROVIDERS: ADMIT Student in an Organized Health Care Education/Training Program; ATTEND Internal Medicine
PROC: 30233N1 Transfusion of Nonautologous Red Blood Cells into Peripheral Vein, Percutaneous Approach (ICD-10-PCS; principal; 2021-09-10)
DX: K72.90 Hepatic failure, unspecified without coma (principal); G93.41 Metabolic encephalopathy; M96.843 Postprocedural seroma of a musculoskeletal structure following other procedure; D68.4 Acquired coagulation factor deficiency; K76.6 Portal hypertension; I10 Essential (primary) hypertension; M19.90 Unspecified osteoarthritis, unspecified site; J45.909 Unspecified asthma, uncomplicated; E78.5 Hyperlipidemia, unspecified; D69.59 Other secondary thrombocytopenia; D75.89 Other specified diseases of blood and blood-forming organs; S80.869A Insect bite (nonvenomous), unspecified lower leg, initial encounter; K74.60 Unspecified cirrhosis of liver; F03.90 Unspecified dementia, unspecified severity, without behavioral disturbance, psychotic disturbance, mood disturbance, and anxiety; E11.65 Type 2 diabetes mellitus with hyperglycemia; B85.0 Pediculosis due to Pediculus humanus capitis; R93.3 Abnormal findings on diagnostic imaging of other parts of digestive tract; Z20.822 Contact with and (suspected) exposure to COVID-19; D53.9 Nutritional anemia, unspecified; R16.1 Splenomegaly, not elsewhere classified; W57.XXXA Bitten or stung by nonvenomous insect and other nonvenomous arthropods, initial encounter; H10.9 Unspecified conjunctivitis; Y83.8 Other surgical procedures as the cause of abnormal reaction of the patient, or of later complication, without mention of misadventure at the time of the procedure; B86 Scabies; Z79.84 Long term (current) use of oral hypoglycemic drugs; Z79.899 Other long term (current) drug therapy; Z85.3 Personal history of malignant neoplasm of breast; Z90.11 Acquired absence of right breast and nipple; Z90.49 Acquired absence of other specified parts of digestive tract; Z98.890 Other specified postprocedural states
CPT/HCPCS: 36415; 36416; 36430; 51701; 70450; 71045; 71046; 74177; 74183; 76705; 80048; 80053; 80074; 80202; 80306; 81003; 81015; 81256; 82103; 82104; 82105; 82140; 82274; 82390; 82607; 82746; 83516; 83605; 83690; 83735; 84100; 84134; 85025; 85610; 85730; 86015; 86038; 86225; 86301; 86850; 86900; 86901; 87040; 87070; 87077; 87086; 87186; 87205; 87804; 93005; 96365; 96366; 96375; 96376; A9579; C9113; G0378; J0692; J1815; J2270; J3370; J3490; J7050; J7070; P9016; U0003; U0005

== ENCOUNTER 2021-10-30 20:12 | Inpatient (IN) | payer MEDICARE ==
[2021-10-30 20:58] LABS: Red Blood Cell (RBC) Count 3.25 mill/uL (4.20-5.40); White Blood Cell (WBC) Count 3.6 thou/uL (4.8-10.8)
[2021-10-30 20:59] LABS: Mean Corpuscular HGB CONC 33.7 g/dL (32.0-36.0); Mean Corpuscular Hemoglobin 37.1 pg (27.0-31.0); RBC Distribution Width 15.1 % (11.5-14.5)
[2021-10-30 21:15] LABS: Acetaminophen Less than 10.0 mcg/mL (10.0-30.0); Alcohol Less than 10 mg/dL (Less than 10); Salicylate Less than 8.0 mg/dL (15.0-30.0)
[2021-10-30 21:17] LABS: #Eosinphils 0.4 thou/uL (0.0-0.7); #Monocytes 0.4 thou/uL (0.11-0.59); #Neutrophils 1.8 thou/uL (1.40-6.50); %Basophils 1.3 % (0.0-1.0); %Eosinophils 11.2 % (0.0-10.0); %Lymphocytes 26.2 % (21.0-51.0); %Monocytes 11.7 % (0.0-10.0); %Neutrophils 49.6 % (42.0-75.0); MDiff Complete? YES; Macrocytosis SLIGHT = 6-15 cells (100X) (0-5/hpf); Mean Platelet Volume 6.7 fL (7.4-10.4); Platelet Count 94 thou/uL (130-400); Platelet Morphology Comment Appears Decreased
[2021-10-30 22:17] LABS: ALT (SGPT) 44 U/L (8-55); AST (SGOT) 86 U/L (5-34); Albumin 2.5 g/dL (3.4-4.8); Alkaline Phosphatase 222 U/L (40-110); Anion Gap 15 mmol/L (10-20); BUN (Urea Nitrogen) 20 mg/dL (9.8-20.1); Bilirubin, Total 0.7 mg/dL (0.2-1.2); Calc. Creatinine Clearance 0 mL/min (70-130); Calcium 9.5 mg/dL (7.8-10.44); Carbon Dioxide 23 mmol/L (23-31); Chloride 105 mmol/L (98-107); Globulin 3.8 g/dL (2.4-3.5); Glucose 115 mg/dL (83-110); Lipase 42 U/L (8-78); Potassium 4.2 mmol/L (3.5-5.1); Protein, Total 6.3 g/dL (5.8-8.1); Sodium 139 mmol/L (136-145)
[2021-10-30] MEDS ORDERED: Acetaminophen 325 MG TAB PO PRN (23:24)
[2021-10-30 23:51] LABS: Bilirubin Negative (Negative); Blood, Urine Negative (Negative); Clarity Clear (Clear); Glucose, Urine (Dipstick) Normal (Negative); Ketone, Urine Negative (Negative); Leukocyte Negative Leu/uL (Negative); Nitrite Negative (Negative); Protein, Urine (Dipstick) Negative (Neg-Trace); Specific Gravity, Urine 1.014 (1.002-1.036); Urobilinogen Normal mg/dL (Less than 2); pH, Urine 7.5 (5.0-9.0)
[2021-10-31 00:24] LABS: Lactic Acid 1.7 mmol/L (0.5-2.2)
[2021-10-31 00:42] VITALS: BMI 26.5
[2021-10-31 07:00] LABS: Anion Gap 11 mmol/L (10-20); BUN (Urea Nitrogen) 17 mg/dL (9.8-20.1); Calc. Creatinine Clearance 55 mL/min (70-130); Calcium 9.7 mg/dL (7.8-10.44); Carbon Dioxide 26 mmol/L (23-31); Chloride 109 mmol/L (98-107); Glucose 130 mg/dL (83-110); Potassium 3.9 mmol/L (3.5-5.1); Sodium 142 mmol/L (136-145)
[2021-10-31 07:43] LABS: #Eosinphils 0.6 thou/uL (0.0-0.7); #Monocytes 0.6 thou/uL (0.11-0.59); #Neutrophils 1.7 thou/uL (1.40-6.50); %Eosinophils 15.1 % (0.0-10.0); %Lymphocytes 26.2 % (21.0-51.0); %Monocytes 14.1 % (0.0-10.0); %Neutrophils 43.5 % (42.0-75.0); Hemoglobin 11.8 g/dL (12.0-16.0); MDiff Complete? YES; Macrocytosis MODERATE=16-30 cells (100X) (0-5/hpf); Mean Corpuscular HGB CONC 32.9 g/dL (32.0-36.0); Mean Corpuscular Hemoglobin 36.1 pg (27.0-31.0); Mean Platelet Volume 7.5 fL (7.4-10.4); Platelet Count 111 thou/uL (130-400); Platelet Morphology Comment Appears Decreased; Polychromasia SLIGHT = 2-3 cells (100X) (0-2/hpf); RBC Distribution Width 15.3 % (11.5-14.5); Red Blood Cell (RBC) Count 3.27 mill/uL (4.20-5.40); Schistocytes SLIGHT = 2-5 cells (100X) (0-1/hpf); Tear Drops SLIGHT = 2-5 cells (100X) (0-1/hpf)
[2021-10-31] MEDS: Rifaximin 550 MG TAB PO SCH ×2 (08:25→20:58)
[2021-10-31 14:23] LABS: SARS-CoV-2 PCR by NAA Not Detected (NotDetected)
[2021-10-31] MEDS ORDERED: Dextrose 5% in Water 1,000 ML IV PRN (15:24)
[2021-10-31] MEDS ORDERED: Dextrose 50% Abboject 50 ML SYRINGE SLOW IVP PRN (15:24)
[2021-10-31] MEDS: HumaLOG 300 UNITS/3 ML VIAL SC PRN ×2 (18:00→23:43)
[2021-11-01] MEDS: Ondansetron PF 4 MG/2 ML Vial IVP PRN ×2 (03:40→05:24)
[2021-11-01 04:55] LABS: Anion Gap 13 mmol/L (10-20); BUN (Urea Nitrogen) 13 mg/dL (9.8-20.1); Calc. Creatinine Clearance 65 mL/min (70-130); Calcium 8.7 mg/dL (7.8-10.44); Carbon Dioxide 20 mmol/L (23-31); Chloride 113 mmol/L (98-107); Glucose 157 mg/dL (83-110); Potassium 3.9 mmol/L (3.5-5.1); Sodium 142 mmol/L (136-145)
[2021-11-01 07:08] LABS: #Eosinphils 0.4 thou/uL (0.0-0.7); #Lymphocytes 0.8 thou/uL (1.20-3.40); #Monocytes 0.5 thou/uL (0.11-0.59); #Neutrophils 2.2 thou/uL (1.40-6.50); %Basophils 0.4 % (0.0-1.0); %Eosinophils 9.6 % (0.0-10.0); %Lymphocytes 19.4 % (21.0-51.0); %Monocytes 13.8 % (0.0-10.0); %Neutrophils 56.9 % (42.0-75.0); Anisocytosis SLIGHT = 6-15 cells (100X) (0-5/hpf); Hemoglobin 11.3 g/dL (12.0-16.0); MDiff Complete? YES; Mean Corpuscular HGB CONC 33.8 g/dL (32.0-36.0); Mean Platelet Volume 6.5 fL (7.4-10.4); Platelet Count 96 thou/uL (130-400); Platelet Morphology Comment Appears Decreased; Red Blood Cell (RBC) Count 3.07 mill/uL (4.20-5.40); White Blood Cell (WBC) Count 3.9 thou/uL (4.8-10.8)
[2021-11-01] MEDS: Rifaximin 550 MG TAB PO SCH ×2 (08:49→21:23)
[2021-11-02 07:23] LABS: #Basophils 0.1 thou/uL (0.0-0.2); #Eosinphils 0.4 thou/uL (0.0-0.7); #Lymphocytes 1.2 thou/uL (1.20-3.40); #Monocytes 0.4 thou/uL (0.11-0.59); #Neutrophils 2.3 thou/uL (1.40-6.50); %Basophils 1.6 % (0.0-1.0); %Eosinophils 8.8 % (0.0-10.0); %Lymphocytes 26.8 % (21.0-51.0); %Monocytes 9.9 % (0.0-10.0); %Neutrophils 52.9 % (42.0-75.0); Hemoglobin 11.9 g/dL (12.0-16.0); Mean Corpuscular HGB CONC 33.9 g/dL (32.0-36.0); Mean Corpuscular Hemoglobin 37.3 pg (27.0-31.0); Mean Platelet Volume 6.4 fL (7.4-10.4); Platelet Count 101 thou/uL (130-400); RBC Distribution Width 14.9 % (11.5-14.5); Red Blood Cell (RBC) Count 3.21 mill/uL (4.20-5.40); White Blood Cell (WBC) Count 4.4 thou/uL (4.8-10.8)
[2021-11-02 07:42] LABS: Anion Gap 12 mmol/L (10-20); BUN (Urea Nitrogen) 12 mg/dL (9.8-20.1); Calc. Creatinine Clearance 72 mL/min (70-130); Calcium 8.7 mg/dL (7.8-10.44); Carbon Dioxide 22 mmol/L (23-31); Chloride 111 mmol/L (98-107); Glucose 91 mg/dL (83-110); Potassium 3.8 mmol/L (3.5-5.1); Sodium 141 mmol/L (136-145)
[2021-11-02 08:31] LABS: Anisocytosis SLIGHT = 6-15 cells (100X) (0-5/hpf); MDiff Complete? YES; Platelet Morphology Comment Appears Decreased
[2021-11-02] MEDS: Rifaximin 550 MG TAB PO SCH (08:56)
[2021-11-02 14:33] VITALS: BP 111/66; TEMP 98
== END 2021-11-02 14:56 | disposition home or self-care (01) | DRG 442 ==
LOC: ERS 20:12 → T4-A 22:19
PROVIDERS: ADMIT Internal Medicine; ATTEND Family Medicine
DX: K72.00 Acute and subacute hepatic failure without coma (principal); D61.818 Other pancytopenia; Z20.822 Contact with and (suspected) exposure to COVID-19; K74.60 Unspecified cirrhosis of liver; E11.9 Type 2 diabetes mellitus without complications; I10 Essential (primary) hypertension; E78.5 Hyperlipidemia, unspecified; F32.A Depression, unspecified; E78.00 Pure hypercholesterolemia, unspecified; Z90.11 Acquired absence of right breast and nipple; Z90.49 Acquired absence of other specified parts of digestive tract; Z90.710 Acquired absence of both cervix and uterus; Z85.3 Personal history of malignant neoplasm of breast; Z92.3 Personal history of irradiation; Z79.899 Other long term (current) drug therapy; Z79.84 Long term (current) use of oral hypoglycemic drugs; Z79.52 Long term (current) use of systemic steroids; Z80.3 Family history of malignant neoplasm of breast
CPT/HCPCS: 36415; 36416; 51701; 70450; 71045; 80048; 80053; 80307; 81003; 82140; 83605; 83690; 83880; 85025; 87040; 87086; 93005; J1815; J2405; U0003; U0005

== ENCOUNTER 2021-11-26 08:34 | Outpatient (CLI) | payer MEDICAID, MEDICARE | END 2021-11-26 08:35 | disposition home or self-care (01) | LOC: BICRAD 08:34 | PROVIDERS: ATTEND Physician Assistant Medical | DX: R09.89 Other specified symptoms and signs involving the circulatory and respiratory systems (principal); K74.60 Unspecified cirrhosis of liver; K86.89 Other specified diseases of pancreas | CPT/HCPCS: 71046 ==

== ENCOUNTER 2021-12-09 08:25 | Outpatient (CLI) | payer MEDICAID, MEDICARE | END 2021-12-09 08:26 | disposition home or self-care (01) | LOC: BICMAMMO 08:25 | PROVIDERS: ATTEND Internal Medicine Hematology & Oncology | DX: Z13.820 Encounter for screening for osteoporosis (principal); M81.0 Age-related osteoporosis without current pathological fracture; M85.851 Other specified disorders of bone density and structure, right thigh; M85.852 Other specified disorders of bone density and structure, left thigh | CPT/HCPCS: 77080 ==

== ENCOUNTER 2022-01-04 13:31 | Observation (INO) | payer MEDICARE ==
[~2022-01-04 13:31] MED LIST: Iopamidol-370 76% 500 ML 1 ML ONE
[2022-01-04 14:33] LABS: #Lymphocytes 0.4 thou/uL (1.20-3.40); #Monocytes 0.3 thou/uL (0.11-0.59); #Neutrophils 6.1 thou/uL (1.40-6.50); %Basophils 0.2 % (0.0-1.0); %Eosinophils 0.3 % (0.0-10.0); %Monocytes 4.3 % (0.0-10.0); %Neutrophils 89.3 % (42.0-75.0); Hemoglobin 11.9 g/dL (12.0-16.0); Mean Corpuscular HGB CONC 33.3 g/dL (32.0-36.0); Mean Corpuscular Hemoglobin 37.2 pg (27.0-31.0); Mean Platelet Volume 6.9 fL (7.4-10.4); Platelet Count 83 thou/uL (130-400); RBC Distribution Width 13.1 % (11.5-14.5); White Blood Cell (WBC) Count 6.9 thou/uL (4.8-10.8)
[2022-01-04 14:44] LABS: ALT (SGPT) 29 U/L (8-55); AST (SGOT) 56 U/L (5-34); Albumin 2.8 g/dL (3.4-4.8); Alkaline Phosphatase 151 U/L (40-110); Anion Gap 14 mmol/L (10-20); BUN (Urea Nitrogen) 16 mg/dL (9.8-20.1); Bilirubin, Total 1.6 mg/dL (0.2-1.2); Calc. Creatinine Clearance 0 mL/min (70-130); Carbon Dioxide 19 mmol/L (23-31); Chloride 111 mmol/L (98-107); Globulin 3.8 g/dL (2.4-3.5); Glucose 160 mg/dL (83-110); Lipase 22 U/L (8-78); Potassium 3.9 mmol/L (3.5-5.1); Protein, Total 6.6 g/dL (5.8-8.1); Sodium 140 mmol/L (136-145)
[2022-01-04 14:54] LABS: MDiff Complete? YES; Macrocytosis SLIGHT = 6-15 cells (100X) (0-5/hpf); Platelet Morphology Comment Appears Decreased; Polychromasia SLIGHT = 2-3 cells (100X) (0-2/hpf)
[2022-01-04] MEDS ORDERED: Ondansetron PF 4 MG/2 ML Vial ONE (16:36)
[2022-01-04] MEDS ORDERED: Ibuprofen 200 MG TAB ONE (16:44)
[2022-01-04] MEDS ORDERED: Cefepime 2 GM VIAL ONE (17:52)
[2022-01-04 18:22] LABS: SARS-CoV-2 NAA Rapid Test Not Detected (NotDetected)
[2022-01-04] MEDS ORDERED: VANCOMYCIN 1.75 GM/500 ML BAG 1.75 GM in Premix Bag 1 BAG IVPB SCH (18:30)
[2022-01-04] MEDS ORDERED: Acetaminophen 325 MG TAB PO PRN (19:13)
[2022-01-04] MEDS ORDERED: Ondansetron ODT 4 MG TAB PO PRN (19:13)
[2022-01-04] MEDS ORDERED: Dextrose 50% Abboject 50 ML SYRINGE SLOW IVP PRN (19:13)
[2022-01-04] MEDS ORDERED: Calcium Carbonate 500 MG ChewTAB PO PRN (19:13)
[2022-01-04] MEDS ORDERED: Dextrose 5% in Water 1,000 ML IV PRN (19:13)
[2022-01-04] MEDS ORDERED: HumaLOG 300 UNITS/3 ML VIAL SC PRN (19:13)
[2022-01-04 19:25] LABS: INR-International Normal Ratio 1.2; Prothrombin Time 15.4 sec (12.0-14.7)
[2022-01-04] MEDS: Lactated Ringer's 1,000 ML IV SCH (21:46)
[2022-01-04] MEDS ORDERED: Rifaximin 550 MG TAB PO SCH (22:45)
[2022-01-05] MEDS ORDERED: Cefepime 2 GM in Sodium Chloride 0.9% 100 ML IVPB SCH (01:30)
[2022-01-05 06:15] LABS: #Eosinphils 0.2 thou/uL (0.0-0.7); #Lymphocytes 0.5 thou/uL (1.20-3.40); #Monocytes 0.4 thou/uL (0.11-0.59); #Neutrophils 2.1 thou/uL (1.40-6.50); %Basophils 0.7 % (0.0-1.0); %Eosinophils 5.6 % (0.0-10.0); %Lymphocytes 14.7 % (21.0-51.0); %Monocytes 11.4 % (0.0-10.0); %Neutrophils 67.6 % (42.0-75.0); Hemoglobin 9.9 g/dL (12.0-16.0); Mean Corpuscular HGB CONC 33.4 g/dL (32.0-36.0); Mean Corpuscular Hemoglobin 38.2 pg (27.0-31.0); Platelet Count 60 thou/uL (130-400); Red Blood Cell (RBC) Count 2.59 mill/uL (4.20-5.40); White Blood Cell (WBC) Count 3.2 thou/uL (4.8-10.8)
[2022-01-05] MEDS: Lactated Ringer's 1,000 ML IV SCH (06:18)
[2022-01-05 06:40] LABS: ALT (SGPT) 22 U/L (8-55); AST (SGOT) 41 U/L (5-34); Albumin 2.2 g/dL (3.4-4.8); Alkaline Phosphatase 96 U/L (40-110); Anion Gap 9 mmol/L (10-20); BUN (Urea Nitrogen) 18 mg/dL (9.8-20.1); Bilirubin, Total 0.9 mg/dL (0.2-1.2); Calc. Creatinine Clearance 86 mL/min (70-130); Carbon Dioxide 20 mmol/L (23-31); Chloride 115 mmol/L (98-107); Glucose 81 mg/dL (83-110); Potassium 3.7 mmol/L (3.5-5.1); Protein, Total 5.2 g/dL (5.8-8.1); Sodium 140 mmol/L (136-145)
[2022-01-05] MEDS ORDERED: metFORMIN 500 MG TAB PO SCH (08:00)
[2022-01-05] MEDS: metFORMIN 500 MG TAB PO SCH ×2 (08:24→17:56)
[2022-01-05] MEDS: Lisinopril 5 MG TAB PO SCH (08:31)
[2022-01-05] MEDS: Thiamine 100 MG TAB PO SCH (08:33)
[2022-01-05] MEDS: Multivitamin W/ Minerals 1 TAB PO SCH (08:33)
[2022-01-05] MEDS: Calcium Carbonate 600 MG TAB PO SCH (08:33)
[2022-01-05] MEDS: Furosemide 20 MG TAB PO SCH (08:33)
[2022-01-05] MEDS: Rifaximin 550 MG TAB PO SCH ×2 (08:33→19:52)
[2022-01-05] MEDS: Folic Acid 1 MG TAB PO SCH (08:33)
[2022-01-05] MEDS: Letrozole 2.5 MG TAB PO SCH (08:34)
[2022-01-05] MEDS ORDERED: Vancomycin 1.5 GRAM/300 ML BAG 1.5 GM in Premix Bag 1 BAG IVPB SCH (15:00)
[2022-01-05 16:08] VITALS: BMI 29.2
[2022-01-06 07:13] LABS: Hemoglobin 10.1 g/dL (12.0-16.0); Mean Corpuscular HGB CONC 34.3 g/dL (32.0-36.0); Mean Corpuscular Hemoglobin 38.5 pg (27.0-31.0); Mean Platelet Volume 6.8 fL (7.4-10.4); Platelet Count 64 thou/uL (130-400); RBC Distribution Width 12.8 % (11.5-14.5); Red Blood Cell (RBC) Count 2.64 mill/uL (4.20-5.40); White Blood Cell (WBC) Count 3.1 thou/uL (4.8-10.8)
[2022-01-06 07:26] LABS: ALT (SGPT) 23 U/L (8-55); AST (SGOT) 49 U/L (5-34); Albumin 2.1 g/dL (3.4-4.8); Alkaline Phosphatase 151 U/L (40-110); Anion Gap 8 mmol/L (10-20); BUN (Urea Nitrogen) 10 mg/dL (9.8-20.1); Bilirubin, Total 0.7 mg/dL (0.2-1.2); Calc. Creatinine Clearance 97 mL/min (70-130); Calcium 7.7 mg/dL (7.8-10.44); Carbon Dioxide 24 mmol/L (23-31); Chloride 112 mmol/L (98-107); Globulin 3.2 g/dL (2.4-3.5); Glucose 86 mg/dL (83-110); Potassium 3.6 mmol/L (3.5-5.1); Protein, Total 5.3 g/dL (5.8-8.1); Sodium 140 mmol/L (136-145)
[2022-01-06 08:11] LABS: Band 21 % (5-11); Eosinophils 2 % (0-10); Lymphocytes 10 % (21-51); MDiff Complete? YES; Macrocytosis MODERATE=16-30 cells (100X) (0-5/hpf); Monocytes 13 % (0-10); Neutrophil 53 % (42-75); Platelet Morphology Comment Appears Decreased; Polychromasia MODERATE = 3-4 cells (100X) (0-2/hpf)
[2022-01-06] MEDS: Lisinopril 5 MG TAB PO SCH (09:09)
[2022-01-06] MEDS: Furosemide 20 MG TAB PO SCH (09:09)
[2022-01-06] MEDS: metFORMIN 500 MG TAB PO SCH (09:09)
[2022-01-06] MEDS: Calcium Carbonate 600 MG TAB PO SCH (09:09)
[2022-01-06] MEDS: Folic Acid 1 MG TAB PO SCH (09:10)
[2022-01-06] MEDS: Thiamine 100 MG TAB PO SCH (09:10)
[2022-01-06] MEDS: Multivitamin W/ Minerals 1 TAB PO SCH (09:10)
[2022-01-06] MEDS: Rifaximin 550 MG TAB PO SCH (09:10)
[2022-01-06] MEDS: Letrozole 2.5 MG TAB PO SCH (09:10)
[2022-01-06 12:35] VITALS: BP 103/62; TEMP 98.6
== END 2022-01-06 15:31 | disposition home or self-care (01) ==
LOC: ERS 13:31 → T4-A 18:08
PROVIDERS: ADMIT Student in an Organized Health Care Education/Training Program; ATTEND Student in an Organized Health Care Education/Training Program
DX: A41.9 Sepsis, unspecified organism (principal); K52.9 Noninfective gastroenteritis and colitis, unspecified; E86.0 Dehydration; K74.60 Unspecified cirrhosis of liver; I11.0 Hypertensive heart disease with heart failure; I50.9 Heart failure, unspecified; E11.9 Type 2 diabetes mellitus without complications; K86.89 Other specified diseases of pancreas; N28.89 Other specified disorders of kidney and ureter; J45.909 Unspecified asthma, uncomplicated; Z66 Do not resuscitate; Z85.3 Personal history of malignant neoplasm of breast; Z79.84 Long term (current) use of oral hypoglycemic drugs; Z79.899 Other long term (current) drug therapy; Z20.822 Contact with and (suspected) exposure to COVID-19
CPT/HCPCS: 0240U; 71045; 74177; 80053 ×3; 82140; 82962 ×3; 83605; 83690; 84145 ×3; 85025 ×3; 85610; 87040; 87324; 87449; 93005; 97139 ×4; J3370; 36415; 36416; 96375; 96376; G0378; J0692; J2405; J3490; J7120; Q9967

== ENCOUNTER 2022-02-05 12:38 | Outpatient (CLI) | payer MEDICAID, MEDICARE | END 2022-02-05 12:39 | disposition home or self-care (01) | LOC: BICMAMMO 12:38 | PROVIDERS: ATTEND Radiology Radiation Oncology | DX: Z08 Encounter for follow-up examination after completed treatment for malignant neoplasm (principal); Z85.3 Personal history of malignant neoplasm of breast; Z90.11 Acquired absence of right breast and nipple | CPT/HCPCS: 77065; G0279 ==

== ENCOUNTER 2022-03-21 17:16 | Inpatient (IN) | payer MEDICARE ==
[2022-03-21 18:07] LABS: #Eosinphils 0.2 thou/uL (0.0-0.7); #Lymphocytes 0.9 thou/uL (1.20-3.40); #Monocytes 0.5 thou/uL (0.11-0.59); #Neutrophils 1.9 thou/uL (1.40-6.50); %Basophils 0.7 % (0.0-1.0); %Eosinophils 4.5 % (0.0-10.0); %Lymphocytes 26.7 % (21.0-51.0); %Neutrophils 55.2 % (42.0-75.0); Hemoglobin 10.2 g/dL (12.0-16.0); Mean Corpuscular HGB CONC 34.9 g/dL (32.0-36.0); Mean Corpuscular Hemoglobin 37.2 pg (27.0-31.0); Mean Platelet Volume 7.1 fL (7.4-10.4); Platelet Count 67 thou/uL (130-400); RBC Distribution Width 12.9 % (11.5-14.5); Red Blood Cell (RBC) Count 2.75 mill/uL (4.20-5.40); White Blood Cell (WBC) Count 3.4 thou/uL (4.8-10.8)
[2022-03-21 18:22] LABS: MDiff Complete? YES; Macrocytosis SLIGHT = 6-15 cells (100X) (0-5/hpf); Platelet Morphology Comment Appears Decreased; Polychromasia SLIGHT = 2-3 cells (100X) (0-2/hpf)
[2022-03-21 18:24] LABS: ALT (SGPT) 28 U/L (8-55); AST (SGOT) 54 U/L (5-34); Albumin 2.9 g/dL (3.4-4.8); Alkaline Phosphatase 228 U/L (40-110); Anion Gap 16 mmol/L (10-20); BUN (Urea Nitrogen) 23 mg/dL (9.8-20.1); Bilirubin, Total 0.7 mg/dL (0.2-1.2); Calc. Creatinine Clearance 0 mL/min (70-130); Calcium 8.8 mg/dL (7.8-10.44); Carbon Dioxide 16 mmol/L (23-31); Chloride 110 mmol/L (98-107); Estimated GFR 43; Globulin 3.7 g/dL (2.4-3.5); Glucose 206 mg/dL (83-110); Lipase 90 U/L (8-78); Protein, Total 6.6 g/dL (5.8-8.1); Sodium 138 mmol/L (136-145)
[2022-03-21 18:45] LABS: Bilirubin Negative (Negative); Blood, Urine Negative (Negative); Clarity Clear (Clear); Glucose, Urine (Dipstick) Normal (Negative); Ketone, Urine Negative (Negative); Leukocyte Negative Leu/uL (Negative); Nitrite Negative (Negative); Protein, Urine (Dipstick) Negative (Neg-Trace); Specific Gravity, Urine 1.022 (1.002-1.036)
[2022-03-21] MEDS ORDERED: Acetaminophen 650 MG Suppository PR PRN (20:21)
[2022-03-21] MEDS ORDERED: Acetaminophen 325 MG TAB PO PRN (20:21)
[2022-03-21 21:23] VITALS: BMI 29.3
[2022-03-21] MEDS: Rifaximin 550 MG TAB PO SCH (23:18)
[2022-03-22] MEDS ORDERED: Ziprasidone 20 MG VIAL IM SCH (00:15)
[2022-03-22] MEDS ORDERED: Dextrose 50% Abboject 50 ML SYRINGE SLOW IVP PRN (00:44)
[2022-03-22] MEDS ORDERED: HumaLOG 300 UNITS/3 ML VIAL SC PRN (00:44)
[2022-03-22] MEDS ORDERED: Dextrose 5% in Water 1,000 ML IV PRN (00:44)
[2022-03-22] MEDS ORDERED: Octreotide Acetate 50 MCG/ML AMP SLOW IVP SCH (01:30)
[2022-03-22] MEDS ORDERED: Pantoprazole 40 MG VIAL IVP SCH ×2 (01:30→09:00)
[2022-03-22] MEDS ORDERED: Octreotide Acetate 1,250 MCG in Sodium Chloride 0.9% 250 ML 250 ML IVPB SCH (02:00)
[2022-03-22] MEDS: cefTRIAXone\\ROCEPHIN 1 GM in Sodium Chloride 0.9% 100 ML IVPB SCH (03:15)
[2022-03-22 05:56] LABS: Hemoglobin 10.6 g/dL (12.0-16.0); Mean Corpuscular HGB CONC 33.5 g/dL (32.0-36.0); Mean Corpuscular Hemoglobin 36.4 pg (27.0-31.0); Mean Platelet Volume 7.1 fL (7.4-10.4); Platelet Count 54 thou/uL (130-400); RBC Distribution Width 12.9 % (11.5-14.5); Red Blood Cell (RBC) Count 2.91 mill/uL (4.20-5.40); White Blood Cell (WBC) Count 3.4 thou/uL (4.8-10.8)
[2022-03-22 05:58] LABS: Anion Gap 15 mmol/L (10-20); BUN (Urea Nitrogen) 16 mg/dL (9.8-20.1); Calc. Creatinine Clearance 68 mL/min (70-130); Calcium 8.6 mg/dL (7.8-10.44); Carbon Dioxide 15 mmol/L (23-31); Chloride 116 mmol/L (98-107); Estimated GFR 71; Glucose 103 mg/dL (83-110); Sodium 142 mmol/L (136-145)
[2022-03-22 06:12] LABS: Band 1 % (5-11); Eosinophils 4 % (0-10); Lymphocytes 23 % (21-51); MDiff Complete? YES; Macrocytosis SLIGHT = 6-15 cells (100X) (0-5/hpf); Monocytes 8 % (0-10); Neutrophil 63 % (42-75); Platelet Morphology Comment Appears Decreased; Reactive Lymphocytes 1 % (0-10)
[2022-03-22] MEDS ORDERED: Sodium Chloride 0.9% 1,000 ML IV SCH (09:15)
[2022-03-22 10:02] LABS: Hemoglobin 10.5 g/dL (12.0-16.0)
[2022-03-22] MEDS: Rifaximin 550 MG TAB PO SCH ×2 (10:32→20:56)
[2022-03-22] MEDS ORDERED: Electrolyte Replacement Protocol 1 EACH FS PRN (11:30)
[2022-03-22 11:56] LABS: Magnesium 1.8 mg/dL (1.6-2.6)
[2022-03-22 12:27] LABS: SARS-CoV-2 NAA Rapid Test Not Detected (NotDetected)
[2022-03-22] MEDS ORDERED: PROPOFOL 200 MG/20 ML VIAL ONE (15:17)
[2022-03-22 17:54] LABS: Hemoglobin 11.1 g/dL (12.0-16.0)
[2022-03-22] MEDS ORDERED: HYDROcodone/Acetaminophen 5/325 mg Tablet PO SCH (23:45)
[2022-03-23 01:17] LABS: Hemoglobin 11.5 g/dL (12.0-16.0)
[2022-03-23] MEDS: cefTRIAXone\\ROCEPHIN 1 GM in Sodium Chloride 0.9% 100 ML IVPB SCH (05:16)
[2022-03-23] MEDS ORDERED: Thiamine 100 MG TAB PO SCH (09:00)
[2022-03-23] MEDS ORDERED: Vit A,C & E/Lutein/Minerals Tablet PO SCH (09:00)
[2022-03-23] MEDS: Pantoprazole 40 MG VIAL IVP SCH (10:03)
[2022-03-23] MEDS: Morphine 2 MG/ML VIAL SLOW IVP PRN ×2 (10:03→20:22)
[2022-03-23] MEDS: Rifaximin 550 MG TAB PO SCH ×2 (10:04→20:22)
[2022-03-23] MEDS: Folic Acid 1 MG TAB PO SCH (10:04)
[2022-03-23] MEDS: Ondansetron ODT 4 MG TAB PO PRN (10:17)
[2022-03-23] MEDS: Ondansetron PF 4 MG/2 ML Vial IVP PRN ×2 (10:41→16:01)
[2022-03-23] MEDS: HumaLOG 300 UNITS/3 ML VIAL SC PRN (12:30)
[2022-03-23] MEDS: Famciclovir 500 MG TAB PO SCH ×2 (16:01→20:21)
[2022-03-24] MEDS: cefTRIAXone\\ROCEPHIN 1 GM in Sodium Chloride 0.9% 100 ML IVPB SCH (02:35)
[2022-03-24] MEDS: Ondansetron PF 4 MG/2 ML Vial IVP PRN (04:51)
[2022-03-24] MEDS: Morphine 2 MG/ML VIAL SLOW IVP PRN ×3 (04:52→21:16)
[2022-03-24] MEDS: HumaLOG 300 UNITS/3 ML VIAL SC PRN ×3 (06:39→18:49)
[2022-03-24] MEDS: Folic Acid 1 MG TAB PO SCH (09:14)
[2022-03-24] MEDS: Rifaximin 550 MG TAB PO SCH ×2 (09:14→21:17)
[2022-03-24] MEDS: Famciclovir 500 MG TAB PO SCH ×3 (09:14→21:17)
[2022-03-24] MEDS: Pantoprazole 40 MG VIAL IVP SCH (09:14)
[2022-03-24] MEDS: Ondansetron ODT 4 MG TAB PO PRN (10:47)
[2022-03-25] MEDS: cefTRIAXone\\ROCEPHIN 1 GM in Sodium Chloride 0.9% 100 ML IVPB SCH (01:59)
[2022-03-25 05:22] LABS: #Eosinphils 0.5 thou/uL (0.0-0.7); #Lymphocytes 1.5 thou/uL (1.20-3.40); #Monocytes 0.5 thou/uL (0.11-0.59); %Basophils 0.6 % (0.0-1.0); %Eosinophils 8.5 % (0.0-10.0); %Lymphocytes 27.1 % (21.0-51.0); %Monocytes 9.8 % (0.0-10.0); %Neutrophils 54.1 % (42.0-75.0); Hemoglobin 10.2 g/dL (12.0-16.0); Mean Corpuscular HGB CONC 35.3 g/dL (32.0-36.0); Mean Corpuscular Hemoglobin 37.8 pg (27.0-31.0); Mean Platelet Volume 6.7 fL (7.4-10.4); Platelet Count 88 thou/uL (130-400); RBC Distribution Width 12.9 % (11.5-14.5); Red Blood Cell (RBC) Count 2.71 mill/uL (4.20-5.40); White Blood Cell (WBC) Count 5.5 thou/uL (4.8-10.8)
[2022-03-25 05:41] LABS: Anion Gap 11 mmol/L (10-20); BUN (Urea Nitrogen) 13 mg/dL (9.8-20.1); Calc. Creatinine Clearance 86 mL/min (70-130); Calcium 8.1 mg/dL (7.8-10.44); Carbon Dioxide 20 mmol/L (23-31); Chloride 117 mmol/L (98-107); Estimated GFR 93; Glucose 101 mg/dL (83-110); Potassium 3.4 mmol/L (3.5-5.1); Sodium 145 mmol/L (136-145)
[2022-03-25] MEDS ORDERED: Potassium Chloride 20 MEQ TAB PO SCH (08:00)
[2022-03-25] MEDS: Famciclovir 500 MG TAB PO SCH ×3 (09:56→22:59)
[2022-03-25] MEDS: Rifaximin 550 MG TAB PO SCH ×2 (09:56→22:59)
[2022-03-25] MEDS: Folic Acid 1 MG TAB PO SCH (09:56)
[2022-03-25] MEDS: Morphine 2 MG/ML VIAL SLOW IVP PRN ×2 (16:53→23:09)
[2022-03-26] MEDS: cefTRIAXone\\ROCEPHIN 1 GM in Sodium Chloride 0.9% 100 ML IVPB SCH (02:39)
[2022-03-26 04:19] LABS: ALT (SGPT) 56 U/L (8-55); AST (SGOT) 92 U/L (5-34); Albumin 2.4 g/dL (3.4-4.8); Alkaline Phosphatase 120 U/L (40-110); Anion Gap 10 mmol/L (10-20); BUN (Urea Nitrogen) 11 mg/dL (9.8-20.1); Bilirubin, Total 1.1 mg/dL (0.2-1.2); Calc. Creatinine Clearance 87 mL/min (70-130); Calcium 8.1 mg/dL (7.8-10.44); Carbon Dioxide 20 mmol/L (23-31); Chloride 112 mmol/L (98-107); Estimated GFR 93; Globulin 3.2 g/dL (2.4-3.5); Glucose 82 mg/dL (83-110); Potassium 3.2 mmol/L (3.5-5.1); Protein, Total 5.6 g/dL (5.8-8.1); Sodium 139 mmol/L (136-145)
[2022-03-26] MEDS ORDERED: Potassium Chloride 20 MEQ TAB PO SCH (08:00)
[2022-03-26] MEDS: Famciclovir 500 MG TAB PO SCH ×3 (11:46→23:09)
[2022-03-26] MEDS: Folic Acid 1 MG TAB PO SCH (11:47)
[2022-03-26] MEDS: Rifaximin 550 MG TAB PO SCH ×2 (11:47→23:09)
[2022-03-27] MEDS: cefTRIAXone\\ROCEPHIN 1 GM in Sodium Chloride 0.9% 100 ML IVPB SCH (01:52)
[2022-03-27] MEDS: Melatonin 3 MG TAB PO PRN ×2 (01:52→20:29)
[2022-03-27] MEDS: Rifaximin 550 MG TAB PO SCH ×2 (09:38→19:59)
[2022-03-27] MEDS: Folic Acid 1 MG TAB PO SCH (09:38)
[2022-03-27] MEDS: Famciclovir 500 MG TAB PO SCH ×3 (09:38→20:00)
[2022-03-27] MEDS ORDERED: Loratadine 10 MG TAB PO SCH (20:30)
[2022-03-28] MEDS ORDERED: Azelastine 137 MCG/Spray 30 ML NS SCH (01:00)
[2022-03-28] MEDS: traZODone HCl 50 MG TAB PO PRN ×2 (01:03→23:29)
[2022-03-28] MEDS: cefTRIAXone\\ROCEPHIN 1 GM in Sodium Chloride 0.9% 100 ML IVPB SCH (01:03)
[2022-03-28] MEDS: Famciclovir 500 MG TAB PO SCH ×3 (09:32→20:09)
[2022-03-28] MEDS: Azelastine 137 MCG/Spray 30 ML NS SCH (09:32)
[2022-03-28] MEDS: Rifaximin 550 MG TAB PO SCH ×2 (09:32→20:10)
[2022-03-28] MEDS: Folic Acid 1 MG TAB PO SCH (09:32)
[2022-03-28] MEDS: HumaLOG 300 UNITS/3 ML VIAL SC PRN (17:54)
[2022-03-28] MEDS: Melatonin 3 MG TAB PO PRN (20:10)
[2022-03-29] MEDS: cefTRIAXone\\ROCEPHIN 1 GM in Sodium Chloride 0.9% 100 ML IVPB SCH (01:55)
[2022-03-29] MEDS: Folic Acid 1 MG TAB PO SCH (08:23)
[2022-03-29] MEDS: Famciclovir 500 MG TAB PO SCH ×2 (08:23→15:47)
[2022-03-29] MEDS: Rifaximin 550 MG TAB PO SCH (08:23)
[2022-03-29] MEDS: Azelastine 137 MCG/Spray 30 ML NS SCH (08:25)
[2022-03-29 08:29] VITALS: TEMP 98.1
[2022-03-29] MEDS: HumaLOG 300 UNITS/3 ML VIAL SC PRN (12:17)
[2022-03-29 12:23] VITALS: BP 105/67
== END 2022-03-29 16:24 | DRG 442 ==
LOC: ERS 17:16 → NEURO 19:50 → T4-B 03-27 13:32
PROVIDERS: ADMIT Student in an Organized Health Care Education/Training Program; ATTEND Internal Medicine
PROC: 0DJ08ZZ Inspection of Upper Intestinal Tract, Via Natural or Artificial Opening Endoscopic (ICD-10-PCS; principal; 2022-03-22)
DX: K72.00 Acute and subacute hepatic failure without coma (principal); D61.818 Other pancytopenia; L03.312 Cellulitis of back [any part except buttock and flank]; N17.9 Acute kidney failure, unspecified; K92.2 Gastrointestinal hemorrhage, unspecified; E11.9 Type 2 diabetes mellitus without complications; I10 Essential (primary) hypertension; J45.909 Unspecified asthma, uncomplicated; M19.90 Unspecified osteoarthritis, unspecified site; E78.00 Pure hypercholesterolemia, unspecified; K74.60 Unspecified cirrhosis of liver; F32.A Depression, unspecified; C50.919 Malignant neoplasm of unspecified site of unspecified female breast; L98.429 Non-pressure chronic ulcer of back with unspecified severity; E86.0 Dehydration; R23.3 Spontaneous ecchymoses; B02.9 Zoster without complications; K86.89 Other specified diseases of pancreas; D13.6 Benign neoplasm of pancreas; Z66 Do not resuscitate; Z20.822 Contact with and (suspected) exposure to COVID-19; Z90.49 Acquired absence of other specified parts of digestive tract; Z90.710 Acquired absence of both cervix and uterus; Z98.890 Other specified postprocedural states; Z79.84 Long term (current) use of oral hypoglycemic drugs; Z79.899 Other long term (current) drug therapy
CPT/HCPCS: 36415; 36416; 70450; 71045; 80048; 80053; 81003; 82140; 83690; 83735; 84443; 84484; 85014; 85018; 85025; 87040; 87086; 93005; 96360; 96361; 97139; 99283; C9113; J0696; J1815; J2270; J2354; J2405; J2704; J3490; J7050; Q0162; U0002; U0003; U0005

== ENCOUNTER 2022-04-13 20:33 | Emergency (ER) | payer MEDICARE ==
[2022-04-13 21:17] LABS: Hemoglobin 10.3 g/dL (12.0-16.0); Mean Corpuscular HGB CONC 33.8 g/dL (32.0-36.0); Mean Corpuscular Hemoglobin 37.5 pg (27.0-31.0); Red Blood Cell (RBC) Count 2.73 mill/uL (4.20-5.40); White Blood Cell (WBC) Count 2.5 thou/uL (4.8-10.8)
[2022-04-13 21:20] LABS: Band 8 % (5-11); Eosinophils 2 % (0-10); Lymphocytes 19 % (21-51); MDiff Complete? YES; Mean Platelet Volume 6.9 fL (7.4-10.4); Monocytes 10 % (0-10); Neutrophil 61 % (42-75); Platelet Count 67 thou/uL (130-400); Platelet Morphology Comment Appears Decreased
[2022-04-13 21:22] LABS: ALT (SGPT) 40 U/L (8-55); AST (SGOT) 96 U/L (5-34); Albumin 2.9 g/dL (3.4-4.8); Alkaline Phosphatase 150 U/L (40-110); Anion Gap 12 mmol/L (10-20); BUN (Urea Nitrogen) 17 mg/dL (9.8-20.1); Bilirubin, Total 1.3 mg/dL (0.2-1.2); Calc. Creatinine Clearance 0 mL/min (70-130); Calcium 9.1 mg/dL (7.8-10.44); Carbon Dioxide 20 mmol/L (23-31); Chloride 112 mmol/L (98-107); Estimated GFR 69; Globulin 3.5 g/dL (2.4-3.5); Glucose 205 mg/dL (83-110); Potassium 3.7 mmol/L (3.5-5.1); Protein, Total 6.4 g/dL (5.8-8.1); Sodium 140 mmol/L (136-145)
== END 2022-04-13 22:43 | disposition home or self-care (01) ==
LOC: ERS 20:33
DX: K72.90 Hepatic failure, unspecified without coma (principal)
CPT/HCPCS: 36415; 80053; 82140; 85025; 99284

== ENCOUNTER 2022-10-03 19:58 | Emergency (ER) | payer OTHER, MEDICARE ==
[2022-10-03] MEDS ORDERED: Ketorolac Tromethamine 30 MG/ML VIAL ONE (22:09)
== END 2022-10-04 00:54 | disposition home or self-care (01) ==
LOC: ERS 19:58
DX: S09.90XA Unspecified injury of head, initial encounter (principal); J45.909 Unspecified asthma, uncomplicated; I10 Essential (primary) hypertension; E78.00 Pure hypercholesterolemia, unspecified; W19.XXXA Unspecified fall, initial encounter
CPT/HCPCS: 70450; 71045; 72125; 93005; 96372; J1885

== ENCOUNTER 2023-03-25 18:11 | Emergency (ER) | payer MEDICARE ==
[2023-03-25 18:56] LABS: #Eosinphils 0.6 thou/uL (0.0-0.7); #Monocytes 0.5 thou/uL (0.11-0.59); #Neutrophils 2.5 thou/uL (1.40-6.50); %Basophils 0.8 % (0.0-1.0); %Eosinophils 12.3 % (0.0-10.0); %Lymphocytes 29.9 % (21.0-51.0); %Neutrophils 46.8 % (42.0-75.0); Hematocrit 36.2 % (36.0-47.0); Hemoglobin 12.3 g/dL (12.0-16.0); Mean Corpuscular Hemoglobin 36.3 pg (27.0-31.0); Mean Corpuscular Volume 106.8 fl (78.0-98.0); Mean Platelet Volume 9.3 fL (7.4-10.4); Platelet Count 88 10x3/uL (130-400); RBC Distribution Width 13.9 % (11.5-14.5); Red Blood Cell (RBC) Count 3.39 mill/uL (4.20-5.40); White Blood Cell (WBC) Count 5.2 10x3/uL (4.8-10.8)
[2023-03-25 19:19] LABS: ALT (SGPT) 19 U/L (8-55); AST (SGOT) 45 U/L (5-34); Albumin 2.8 g/dL (3.4-4.8); Alkaline Phosphatase 211 U/L (40-110); Anion Gap 10 mmol/L (10-20); BUN (Urea Nitrogen) 12 mg/dL (9.8-20.1); Bilirubin, Total 0.9 mg/dL (0.2-1.2); Calc. Creatinine Clearance 0 mL/min (70-130); Calcium 8.9 mg/dL (7.8-10.44); Carbon Dioxide 20 mmol/L (23-31); Chloride 112 mmol/L (98-107); Estimated GFR 74; Globulin 4.3 g/dL (2.4-3.5); Glucose 312 mg/dL (83-110); Potassium 3.9 mmol/L (3.5-5.1); Protein, Total 7.1 g/dL (5.8-8.1); Sodium 138 mmol/L (136-145)
[2023-03-25 19:22] LABS: Troponin I Less than 0.010 ng/mL (< 0.028)
== END 2023-03-25 20:41 | disposition home or self-care (01) ==
LOC: ERS 18:11
DX: I11.0 Hypertensive heart disease with heart failure (principal); I50.9 Heart failure, unspecified; R60.9 Edema, unspecified; I10 Essential (primary) hypertension; E78.00 Pure hypercholesterolemia, unspecified; E11.9 Type 2 diabetes mellitus without complications; Z79.84 Long term (current) use of oral hypoglycemic drugs; Z79.899 Other long term (current) drug therapy
CPT/HCPCS: 36415; 80053; 83880; 84484; 85025; 93005

== ENCOUNTER 2023-11-22 22:08 | Emergency (ER) | payer MEDICARE ==
[2023-11-23] MEDS ORDERED: Acetaminophen 500 MG TAB ONE (00:30)
[2023-11-23] MEDS ORDERED: Ketorolac Tromethamine 30 MG (1 mL) VIAL ONE (00:31)
[2023-11-23] MEDS ORDERED: cefTRIAXone (ROCEPHIN) 500 MG VIAL ONE (02:27)
[2023-11-23] MEDS ORDERED: Lidocaine 1% MPF 2 ML VIAL ONE (02:27)
[2023-11-23] MEDS ORDERED: Bacitracin 1 PK ONE (02:51)
[2023-11-23] MEDS ORDERED: Acetaminophen/Codeine 30-300mg Tablet ONE (03:05)
== END 2023-11-23 03:29 | disposition home or self-care (01) ==
LOC: ERS 22:08
DX: G89.29 Other chronic pain (principal); M54.50 Low back pain, unspecified; M79.605 Pain in left leg; E11.9 Type 2 diabetes mellitus without complications; I10 Essential (primary) hypertension
CPT/HCPCS: 96372; 99283; J0696; J1885